=== PATIENT | male | born 1990 | race Caucasian/White ===

== ENCOUNTER 2024-09-03 15:50 | Observation (INO) | payer MEDICAID, SELFPAY ==
[2024-09-03] VITALS (13 sets, daily range): BP systolic 125–156; BP diastolic 81–112; PULSE 77–103; RESP 14–20; TEMP 36.5–37.3; O2SAT 96–99; BMI 41.8; BMI 39.9
--- NOTE | 2024-09-03 16:00 | CT_ITS ---
PROCEDURE: STROKE CTA HEAD AND NECK W/CON N/A REASON FOR EXAM: NEURO DEFICIT, ACUTE, STROKE SUSPECTED TECHNIQUE: CTA imaging of the head and neck from the aortic arch to the skull vertex with intravenous contrast. Coronal and Sagittal reconstruction series were provided. 3D, 3D post processing, 3D reconstructions, Maximum intensity projection (MIPs) Volume rendering and Shaded surface rendering was provided. CONTRAST: Omnipaque 350 VOLUME: 100 mL Not Provided Gauge IV One or more dose reduction techniques were used (e.g., Automated exposure control, adjustment of the mA and/or kV according to patient size, use of iterative reconstruction technique). COMPARISON: None FINDINGS: Aortic Arch: Normal size and branching pattern. No significant atherosclerotic plaque. Brachiocephalic and Subclavians: Unremarkable RIGHT Carotid: Right CCA: Unremarkable. Right ICA: Unremarkable. Maximum stenosis (NASCET): 0 % Right ECA: Unremarkable. LEFT Carotid: Left CCA: Unremarkable. Left ICA: Unremarkable. Maximum stenosis (NASCET): 0 % Left ECA: Unremarkable. Vertebrals: Codominant. Arise from the subclavians. Both vertebrals form the basilar. RIGHT Vertebral: Unremarkable. LEFT Vertebral: Unremarkable. Anatomy: [place] anatomy is normal. Aneurysm or avm: No intracranial aneurysms or large vascular malformations are identified. Anterior cerebral arteries: Unremarkable: Middle cerebral arteries: Unremarkable. Basilar artery: Unremarkable. Posterior cerebral arteries: Unremarkable. Other major branches of the posterior circulation: Unremarkable. Major venous structures: Unremarkable. Other findings: Neck: 2.0 x 3.1 cm superficial right lower neck soft tissue mass (series 2, image 138), likely represents a sebaceous cyst. Lungs: Lung apices are clear. Bones: Bones are unremarkable. CT/STROKE CTA Head AND Neck W/Con IMPRESSION: Patent anterior and posterior intracranial and extracranial circulation without hemodynamically significant stenosis, occlusion or aneurysm formation. Reading Location: [facility]
--- NOTE | 2024-09-03 16:01 | EKG12_ITS ---
Test Reason : NEURO Blood Pressure : */* mmHG Vent. Rate : 91 BPM Atrial Rate : 91 BPM P-R Int : 136 ms QRS Dur : 86 ms QT Int : 370 ms P-R-T Axes : 22 16 20 degrees QTcB Int : 455 ms Normal sinus rhythm Normal ECG Confirmed by Derrell Zambrano ([id number]), editorial intern CINDY MOSCOSO ([id number]) on 09/07/2024 6:42:42 AM Referred By: Adam Meza Confirmed By: Derrell Zambrano
--- NOTE | 2024-09-03 16:01 | CT_ITS ---
EXAM: CT Head Without Intravenous Contrast CLINICAL INDICATION: NEURO DEFICIT, ACUTE, STROKE SUSPECTED TECHNIQUE: Axial computed tomography images of the head/brain without intravenous contrast. This CT exam was performed using one or more of the following dose reduction techniques: automated exposure control, adjustment of the mA and/or kV according to patient size, and/or use of iterative reconstruction technique. COMPARISON: No relevant prior studies available. FINDINGS: BRAIN AND EXTRA-AXIAL SPACES: No acute intracranial hemorrhage, midline shift or mass effect. If symptoms persist, further evaluation with MRI is recommended. No significant white matter disease. BONES/JOINTS: Unremarkable. No acute fracture. SOFT TISSUES: Unremarkable. SINUSES: Unremarkable as visualized. No acute sinusitis. MASTOID AIR CELLS: Unremarkable as visualized. No mastoid effusion. CT/STROKE Brain/Head without Cont IMPRESSION: No acute intracranial hemorrhage, midline shift or mass effect. If symptoms per sist, further evaluation with MRI is recommended. Reading Location: [facility]
--- NOTE | 2024-09-03 16:04 | ED.VIS.STROK ---
HPI History of Present Illness Chief Complaint: Weakness Informant: patient and EMS Narrative Narrative: Brought by EMS progressive right upper extremity weakness and right lower leg weakness. Patient reported 9 AM yesterday 19 hours ago was already awake at home felt tingling in his hand progressed up to his forearm to his elbow. He felt some weakness in the arm. Some headache dizziness. No speech issues. States there is some weakness of the right lower extremity. He is a diabetic. He started on lisinopril 2 days ago by his PCP. No anticoagulants no stroke history. No history of similar. Denies any neck pain. Blood glucose 248 by EMS. Stroke team activated by nursing on arrival with symptoms within 24 hours. Patient reports symptoms progressed therefore he called EMS. Prior similar symptoms: No PFSH PFSH Medical History HTN (hypertension) Home Medications ?Medication ?Instructions ?Recorded ?Last Taken ?Type albuterol sulfate 90 mcg/actuation 1 puff inhalation Q4H PRN PRN 09/03/24 09/03/24 History aerosol inhaler wheezing bupropion HCl 150 mg 24 hr tablet, 150 mg PO DAILY 09/03/24 09/02/24 History extended release fluvoxamine 100 mg tablet 200 mg PO QHS 09/03/24 09/02/24 History lisinopril 10 mg tablet 10 mg PO DAILY 09/03/24 09/03/24 History metformin 1,000 mg tablet 1,000 mg PO BID 09/03/24 09/03/24 History sitagliptin phosphate 100 mg 100 mg PO DAILY 09/03/24 09/03/24 History tablet (Januvia) Allergy/AdvReac Type Severity Reaction Status Date / Time cat dander (cats) Allergy Mild Other Verified 09/03/24 17:13 Family History Other CVA (cerebral vascular accident) Cancer Diabetes Heart disease Social History Smoking Status: Never smoker ROS ROS ED Constitutional Constitutional ED: Denies chills, fever(s) or sweats ENT ENT ED: Denies sore throat Cardiovascular Cardiovascular: Denies chest pain, leg edema, palpitations or racing heartbeat Respiratory/Chest Respiratory/Chest: Denies cough, dyspnea or dyspnea on exertion Gastrointestinal Gastrointestinal: Denies abdominal pain, diarrhea, nausea or vomiting Genitourinary Genitourinary ED: Denies dysuria, hematuria or urinary frequency Musculoskeletal Musculoskeletal: Denies back pain, extremity pain or neck pain Integumentary Denies rash or wounds Neurologic Neurologic: Reports headache(s), paresthesias and weakness EXAM Physical Exam Const Vital Signs: 09/03/24 15:56 09/03/24 16:01 09/03/24 16:01 Temperature 99.2 F H Temperature Source Oral Pulse Rate 103 H 94 Respiratory Rate 16 16 Respiratory Effort Respiratory Pattern Blood Pressure 156/112 H 154/104 H Blood Pressure Mean 126 120 Pulse Ox 97 96 Oxygen Delivery Method Room Air Room Air Room Air 09/03/24 16:06 09/03/24 16:20 09/03/24 16:31 Temperature 99.2 F H Temperature Source Oral Pulse Rate 103 H 91 Respiratory Rate 16 19 H Respiratory Effort Normal Respiratory Pattern Normal Blood Pressure 156/112 H 141/96 H Blood Pressure Mean 126 111 Pulse Ox 97 96 Oxygen Delivery Method Room Air 09/03/24 17:00 09/03/24 17:01 09/03/24 17:30 Temperature Temperature Source Pulse Rate 85 85 89 Respiratory Rate 18 18 16 Respiratory Effort Respiratory Pattern Blood Pressure 137/95 H 134/98 H 125/81 H Blood Pressure Mean 109 110 95 Pulse Ox 97 97 98 Oxygen Delivery Method Room Air Room Air Positive well nourished and well developed General Appearance ED: well developed and NAD HEENT Reports moist mucous membranes normocephalic and atraumatic Eyes General Eye ED: Yes normal appearance of both eyes Neck full ROM Chest Wall Chest: Negative for tenderness Resp normal respiratory effort and normal air movement Effort and Inspection: symmetric chest movement; Negative for respiratory distress Cardio regular rate, regular rhythm and no murmurs Peripheral Pulses: pulses 2+ throughout GI normal to inspection, nondistended, normoactive bowel sounds and non-tender Palpation: Negative for guarding or rebound tenderness present Extremity normal to inspection General Extremety ED: Negative for edema or tenderness General Extremity: Negative for edema Neuro oriented x3, CN's II-XII intact bilaterally and no sensory deficits noted Neuro Narrative: Upper and lower cerebellar symmetric intact. NIH of 1 for paresthesia right upper extremity compared to the left. 4 out of 5 weakness to right director of direct marketing strength and elbow extension right side compared to the left side. 4 out of 5 strength right hip flexor, 3 out of 5 to right plantarflexion. Sensorium / Orientation: awake and alert Skin no rashes or lesions noted and no wounds NIHSS NIHSS Initial: 1a Level of Consciousness: 0 1b LOC Questions (Score 2 if aphasic/stupor): 0 1c LOC Commands (Only score 1st attempt): 0 2 Best Gaze (If aphasic, use reflexive mvmts.): 0 3 Visual: 0 4 Facial Palsy: 0 5 Motor Arm Right (UN = amputation/fusion): 0 5 Motor Arm Left: 0 6 Motor Leg Right: 0 6 Motor Leg Left: 0 7 Limb ataxia (Only + if out of proportion): 0 8 Sensory (Aphasia/stupor=0 or 1, coma=2): 1 9 Best Language: 0 10 Dysarthria (mute, coma=2, intubated=UN): 0 11 Extinction and Inattention (only scored if +): 0 Total Score: 1 MDM MDM MDM Narrative Medical decision making narrative: Interventions / MDM: Differential diagnosis: Right sided weakness, right upper extremity paresthesia, CVA, conversion disorder, history of diabetes Diagnosis considered but do not suspect: Intracranial hemorrhage however CT negative. My EKG interpretation: Sinus rhythm 91, no ST changes, T wave version leads III nonspecific. QTc 455. Imaging independently reviewed and interpreted by myself: CT brain: No acute process also read by radiology. CT angiogram: No LVO. External documents reviewed: N/A Test considered but not ordered:N/A ED course: Stroke team was activated before my evaluation. Patient NIH of 1 for paresthesias. Does have weakness right upper and lower extremity compared to the left side. CT head CT angiogram. Patient not in the time window for any TNK. Patient is being taken for CT. However while patient over at CT, noted time was 9 AM yesterday therefore this is over 24 hours. With his age, angiogram will be obtained. 1628: CT brain negative. 1731: CT angiogram negative. Labs stable. Reevaluation he states there is improvement however still slightly there and I still 1 for this. There is still some slight weakness director of direct marketing strength and elbow extension along with hip flexor and plantarflexion however noted to be improved from initial evaluation. Discussion with mom in the room he does have stress at work he states he works in a [employer] however states no more than normal. Mother reports family is to from stroke however is in their 50s. I discussed with patient with stress, conversion disorder is in the differential. He is a diabetic however therefore he does have risks. Due to still have weakness and new symptoms will discuss with hospitalist for admission for MRI. Discussed with hospitalist For admission. Derrick Re-evaluation: stable Disposition discussed with patient/family/significant other: Patient and mother Case discussed with consulting clinician: N/A This note was generated with Lootsie dictation software. It may contain incorrect words, spelling, and punctuation that were not noted in checking the note before signing. Lab Data Attestation: I reviewed the patient's lab results. Labs: Laboratory Results - last 24 hr 09/03/24 09/03/24 16:00 16:41 WBC 5.9 RBC 5.66 Hgb 15.7 Hct 47.3 MCV 83.6 MCH 27.7 MCHC 33.2 RDW Std Deviation 41.3 RDW Coeff of Trell 13.6 Plt Count 381 MPV 9.0 Immature Gran % (Auto) 0.300 Neut % (Auto) 58.7 Lymph % (Auto) 30.7 [place] % (Auto) 7.3 Eos % (Auto) 2.0 Baso % (Auto) 1.0 Absolute Neuts (auto) 3.5 Absolute Lymphs (auto) 1.81 Nucleated RBC % 0 PT 12.7 INR 0.9 APTT 26.2 Sodium 136 Potassium 4.3 Chloride 102 Carbon Dioxide 20.1 L Anion Gap 14 BUN 15 Creatinine 0.74 Estim Creat Clear Calc 207.89 Est GFR (MDRD) Non-Af 123 BUN/Creatinine Ratio 20.5 H Glucose 226 H Calcium 9.3 Troponin T High Sens < 6 Radiography Diagnostic Testing: Clinical Impression(s) from Imaging Studies Head/Neck CTA 09/03/24 16:00 IMPRESSION: Patent anterior and posterior intracranial and extracranial circulation without hemodynamically significant stenosis, occlusion or aneurysm formation. Reading [facility] 09/03/24 16:01 IMPRESSION: No acute intracranial hemorrhage, midline shift or mass effect. If symptoms persist, further evaluation with MRI is recommended. Reading Location: [facility] Stroke Documentation Questions Stroke Team Activated: Yes Reviewed Inclusion/Exclusion criteria: No Was Patient considered for Endovascular Intervention?: No-CTA negative, determined not to be an endovascular candidate IV Thrombolytic Administered: No (Outside the window) Critical Care Time Critical Care Time: Yes Critical care time (excluding procedures): 30-74 minutes, Discussing w/Patient &/or Family/Senior Rd Engineer, Discussing w/Consultants, Arranging Admission or Transfer, Performing Direct Patient Care at Bedside and - (31 minutes) Discharge Plan Dx/Rx/DC Orders Clinical Impression: Right sided weakness, Paresthesia, History of diabetes mellitus Disposition Disposition: Acute Care Hospital [facility] Discharge Date/Time: 09/03/24 18:45
[2024-09-03 16:12] LABS: Absolute Lymphocyte Count 1.81 X10^3/uL (0.83-4.51); Absolute Neutrophil Count 3.5 X10^3/uL (2.0-7.7); Basophil# 0.06 X10^3/uL; Eosinophil# 0.12 X10^3/uL; Hematocrit 47.3 % (40-54); Hemoglobin 15.7 g/dL (13.0-16.5); Lymphocyte # 1.81 X10^3/ul (0.83-4.51); Lymphocyte % 30.7 % (19-41); Mean Corp Hgb Conc 33.2 g/dL (32-36); Mean Corpuscular Hgb 27.7 pg (27.0-32.0); Mean Corpuscular Volume 83.6 fL (80-94); Monocyte# 0.43 X10^3/uL; Monocyte% 7.3 % (0-10); NRBC Flagged by Analyzer 0 % (0-5); Neutrophil # 3.45 X10^3/uL (2.7-7.7); Neutrophil % 58.7 % (47-70); Platelet Count 381 K/mm3 (150-450); RBC Distribution Width CV 13.6 % (11.6-14.6); RBC Distribution Width SD 41.3 fl (35.1-43.9); Red Blood Count 5.66 M/mm3 (4.6-6.2); White Blood Count 5.9 K/mm3 (4.4-11.0)
--- NOTE | 2024-09-03 16:15 | ED.RN ---
initally lkw was last evening thus stroke alert initated based on this information. after further assessment and information gathering, found sx started at [address] carpio and [facility]y aware and stroke alert cancelled. continue to follow through on neurology workup.
--- NOTE | 2024-09-03 16:21 | CHAPLAIN ---
Type of Pastoral Visit ___ Initial Visit ___ Follow-up Visit ___ On-call Visit ___ General Patient Visit ___ Spiritual Assessment ___ Family Conference ___ Bereavement ___ Rapid Response ___ Code Blue ___ Other (describe below) Pastoral Care Referral From ___ Patient ___ Family ___ Nurse ___ Physician ___ Beehive Kiln Charcoal Burner ___ Team Otr Truck Driver ___ Other (describe below) Sacrament/Intervention ___ Active listening ___ Anointing ___ Adventism ___ Bereavement ___ Communion ___ Alejandrina exploration ___ ___ Life review ___ Prayer ___ Reconciliation ___ Sacrament of Sick ___ Supportive presence ___ Wedding ___ Other (describe below) Pastoral Comments responded to stroke alert in the ED; patient had just been taken to CT; when pt returned introduced self and role to the patient and offered support and presence; pt reponsed that he was okay and that no family or friends would be arriving; pt denied needs at this time
[2024-09-03 16:48] LABS: Anion Gap 14 (5-15); BUN 15 mg/dL (4-19); BUN/Creat Ratio 20.5 RATIO (10-20); Calcium,Total 9.3 mg/dL (7.6-11.0); Carbon Dioxide 20.1 mmol/L (21.0-32.0); Chloride 102 mmol/L (98-108); Creatinine, Serum 0.74 mg/dL (0.70-1.20); EST Glomerular Filtration Rate 123 (>60); Estimated Creatinine Clearance 207.89 ml/min (50-250); Glucose 226 mg/dL (70-99); Potassium 4.3 mmol/L (3.3-5.1); Sodium Level 136 mmol/L (133-145); Troponin T High Sensitivity < 6 ng/L (<=22)
[2024-09-03 17:10] LABS: International Normalized Ratio 0.9; Partial Thromboplast Time 26.2 Seconds (24.1-36.2); Prothrombin Time (Protime)PT. 12.7 SECONDS (11.7-14.9)
--- NOTE | 2024-09-03 18:15 | PCM.HP.STD ---
HPI - General General Date of Admission: 09/03/24 HPI Narrative WAYLON CHRISTY, is a 34 M who presents to the hospital complaining of right arm and right leg weakness with numbness and tingling in his hand. He says that it started around yesterday at 9 AM and it has been getting worse. No recent traumas and denies any change in his diet. No back pain or neck pain. He may have endorsed some headaches around that time but no history of migraines. He does have type 2 diabetes that he is on metformin and Januvia for and he was recently started on lisinopril by his PCP. NIH of 1 for numbness and tingling in his right hand [facility] Medical History HTN (hypertension) Home Medications ?Medication ?Instructions ?Recorded ?Last Taken ?Type albuterol sulfate 90 mcg/actuation 1 puff inhalation Q4H PRN PRN 09/03/24 09/03/24 History aerosol inhaler wheezing bupropion HCl 150 mg 24 hr tablet, 150 mg PO DAILY 09/03/24 09/02/24 History extended release fluvoxamine 100 mg tablet 200 mg PO QHS 09/03/24 09/02/24 History lisinopril 10 mg tablet 10 mg PO DAILY 09/03/24 09/03/24 History metformin 1,000 mg tablet 1,000 mg PO BID 09/03/24 09/03/24 History sitagliptin phosphate 100 mg 100 mg PO DAILY 09/03/24 09/03/24 History tablet (Januvia) Allergy/AdvReac Type Severity Reaction Status Date / Time cat dander (cats) Allergy Mild Other Verified 09/03/24 17:13 Family History Other CVA (cerebral vascular accident) Cancer Diabetes Heart disease Surgical History no surgical history no surgical history Social History Smoking Status: Never smoker ROS Constitutional Constitutional: Denies chills, fatigue, fever(s) or malaise Eyes Eyes: Denies blurry vision ENT HEENT: Denies headache(s) or nasal discharge Cardiovascular Cardiovascular: Denies chest pain, dyspnea on exertion or syncope Respiratory/Chest Respiratory/Chest: Denies cough, shortness of breath at rest or shortness of breath with exertion Gastrointestinal Gastrointestinal: Denies constipation, diarrhea, nausea or vomiting Genitourinary Genitourinary: Denies dysuria Neurologic Neurologic: Reports focal weakness and paresthesias RUE; Denies numbness or tremor(s) Psychiatric Psychiatric: Denies anxiety or depression Vital Signs Vital Signs Vital Signs: 09/03/24 15:56 09/03/24 16:01 09/03/24 16:01 Temperature 99.2 F H Temperature Source Oral Pulse Rate 103 H 94 Respiratory Rate 16 16 Respiratory Effort Respiratory Pattern Blood Pressure 156/112 H 154/104 H Blood Pressure Mean 126 120 Pulse Ox 97 96 Oxygen Delivery Method Room Air Room Air Room Air 09/03/24 16:06 09/03/24 16:20 09/03/24 16:31 Temperature 99.2 F H Temperature Source Oral Pulse Rate 103 H 91 Respiratory Rate 16 19 H Respiratory Effort Normal Respiratory Pattern Normal Blood Pressure 156/112 H 141/96 H Blood Pressure Mean 126 111 Pulse Ox 97 96 Oxygen Delivery Method Room Air 09/03/24 17:00 09/03/24 17:01 09/03/24 17:30 Temperature Temperature Source Pulse Rate 85 85 89 Respiratory Rate 18 18 16 Respiratory Effort Respiratory Pattern Blood Pressure 137/95 H 134/98 H 125/81 H Blood Pressure Mean 109 110 95 Pulse Ox 97 97 98 Oxygen Delivery Method Room Air Room Air 09/03/24 18:00 Temperature Temperature Source Pulse Rate 77 Respiratory Rate 14 Respiratory Effort Respiratory Pattern Blood Pressure 132/82 H Blood Pressure Mean 98 Pulse Ox 96 Oxygen Delivery Method Weight Weight: 308 lb 10.354 oz Body Mass Index (BMI) 41.8 Physical Exam Narrative General: Alert, Oriented x3, Cooperative, No apparent distress HEENT: Atraumatic, PERRLA, EOMI, Normocephalic Oral: Moist Mucosa Neck: Supple, No JVD, right lower neck sebaceous cyst Lungs: Clear to auscultation, Normal air movement, No rhonchi, No wheeze, No rales Cardiovascular: Regular rate, Regular Rhythm, Normal S1, Normal S2, No murmurs Abdomen: Soft, Non Tender, Non-Distended, No Hepato-splenomegaly Extremities: No edema, Capillary Refill Less than 3 Seconds Skin: No rashes, No breakdown Musculoskeletal: No Tenderness to Palpation of Joints or Extremities Neurological: Diminished sensation in his right hand, NIH of 1, strength is 4 out of 5 on his right upper extremity and right lower extremity Psych/Mental Status: Normal Affect, Appropriate Results Lab / Micro Data 09/03/24 16:00 09/03/24 16:00 Labs: Laboratory Results - last 24 hr 09/03/24 16:00: WBC 5.9, RBC 5.66, Hgb 15.7, Hct 47.3, MCV 83.6, MCH 27.7, MCHC 33.2, RDW Std Deviation 41.3, RDW Coeff of Trell 13.6, Plt Count 381, MPV 9.0, Immature Gran % (Auto) 0.300, Neut % (Auto) 58.7, Lymph % (Auto) 30.7, [place] % (Auto) 7.3, Eos % (Auto) 2.0, Baso % (Auto) 1.0, Absolute Neuts (auto) 3.5, Absolute Lymphs (auto) 1.81, Nucleated RBC % 0, Sodium 136, Potassium 4.3, Chloride 102, Carbon Dioxide 20.1 L, Anion Gap 14, BUN 15, Creatinine 0.74, Estim Creat Clear Calc 207.89, Est GFR (MDRD) Non-Af 123, BUN/Creatinine Ratio 20.5 H, Glucose 226 H, Calcium 9.3, Troponin T High Sens < 6 09/03/24 16:41: PT 12.7, INR 0.9, APTT 26.2 Imaging Radiology Impression Head/Neck CTA 09/03/24 16:00 IMPRESSION: Patent anterior and posterior intracranial and extracranial circulation without hemodynamically significant stenosis, occlusion or aneurysm formation. Reading [facility] 09/03/24 16:01 IMPRESSION: No acute intracranial hemorrhage, midline shift or mass effect. If symptoms persist, further evaluation with MRI is recommended. Reading [facility] Assessment & Plan Assessment/Plan (1) Right sided weakness: (2) Paresthesia: PLAN: Plan 1. TIA ? A little atypical given his age however he is morbidly obese with a BMI of 41 ? Will obtain an MRI and an echo in the morning ? Will place him on aspirin and Lipitor ? CTA of the head and neck as well as CT of the brain were unremarkable 2. DM2 ? Will hold his metformin and Januvia ? Sliding scale insulin ? Accu-Cheks ACHS ? Will monitor make adjustments as necessary ? Will hold his lisinopril to allow for permissive hypertension DVT: SCDs 75 minutes was spent on direct patient care, including documentation as well as chart review and collaboration with colleagues Charges/Coding Visit Charges Inpatient E&M: 64838 Init Hosp L3
[2024-09-03 18:54] LABS: Troponin T High Sens 2 HR 6 ng/L (<=22)
--- NOTE | 2024-09-03 19:33 | ECHOD_ITS ---
Reason For Study Reason For Study: TIA/CVA Procedure This was a 2D Doppler, Color Flow transthoracic echocardiogram. Exam performed portable in patient room. Left Ventricle Normal left ventricle. The estimated ejection fraction is 55-60 %. Right Ventricle Normal right ventricle. Atria Normal left atrium. Normal right atrium. Bubble contrast study is negative for PFO/ASD. Mitral Valve The mitral valve is structurally normal. No prolapse or stenosis seen. Trivial mitral valve insufficiency. Tricuspid Valve Normal tricuspid valve. Aortic Valve Trisinus/trileaflet aortic valve. Pulmonic Valve The pulmonic valve is not well visualized. Great Vessels The aortic root is not well visualized. Pericardium/Pleural No pericardial effusion. Medication Performed a rapid injection of agitated mix of 9 cc saline and 1cc air to assess for atrial septal defect. MMode/2D Measurements & Calculations LVIDd: 4.8 cm IVSd: 1.2 cm Ao root diam: 3.1 cm LVIDs: 3.2 cm LVPWd: 1.2 cm RVDd: 3.4 cm FS: 32.8 % LAV(MOD-bp): 40.0 ml LVAd ap4: 29.2 cm2 SV(MOD-sp4): 54.7 ml LAV(MOD-bp) Indexed: 15.6 ml/m2 LVLd ap4: 8.1 cm SI(MOD-sp4): 21.4 ml/m2 LAV(MOD-sp2): 33.7 ml EDV(MOD-sp4): 87.0 ml LAV(MOD-sp4): 39.9 ml EDV(sp4-el): 90.0 ml LVAs ap4: 16.1 cm2 LVLs ap4: 6.6 cm ESV(MOD-sp4): 32.3 ml ESV(sp4-el): 33.4 ml EF(MOD-sp4): 62.8 % EF(sp4-el): 62.9 % SV(sp4-el): 56.6 ml LA A4 area: 17.4 cm2 LA dimension(2D): 3.6 cm RA A4 area: 14.1 cm2 TAPSE: 2.3 cm Time Measurements MV dec time: 0.23 sec Doppler Measurements & Calculations MV E max chris: 103.2 cm/sec Lat Peak E' Chris: 17.1 cm/sec Med Peak E' Chris: 14.4 cm/sec MV A max chris: 66.5 cm/sec E/E' lat: 6.0 E/E' med: 7.2 MV E/A: 1.6 Ao V2 max: 151.9 cm/sec LV V1 max: 129.3 cm/sec PA V2 max: 123.2 cm/sec Ao max P.2 mmHg LV V1 max P.7 mmHg TR max chris: 263.4 cm/sec TR max P.8 mmHg ECHO/Echo Complete Interpretation Summary The estimated ejection fraction is 55-60 %. Normal LV systolic function Negative bubble study No previous echocardiogram to compare. Ordering Physician: Adam Meza Referring Physician: AMMY BARROW Performed By: Shereen Winkler RDCS
[2024-09-03 21:22] LABS: Troponin T High Sens 4 HR 6 ng/L (<=22)
[2024-09-03] MEDS: Insulin Lispro 100 UNIT/ML INSULN.PEN SC (23:50)
[2024-09-03] MEDS: buPROPion (XL) 150 MG TABLET.XL PO (23:50)
[2024-09-03] MEDS: Atorvastatin Calcium 80 MG Tablet PO (23:50)
[2024-09-03] MEDS: fluvoxaMINE Maleate 50 MG Tablet 200 MG PO (23:50)
[2024-09-04 00:01] LABS: Bedside Glucose 230 mg/dL (74-106)
[2024-09-04 03:45] VITALS: BP 127/83; PULSE 75; RESP 16; TEMP 36.6; O2SAT 98
[2024-09-04] MEDS: Insulin Lispro 100 UNIT/ML INSULN.PEN SC ×2 (06:41→12:06)
[2024-09-04 07:15] LABS: Bedside Glucose 185 mg/dL (74-106)
[2024-09-04 07:34] LABS: Absolute Lymphocyte Count 1.61 X10^3/uL (0.83-4.51); Absolute Neutrophil Count 2.3 X10^3/uL (2.0-7.7); Basophil# 0.07 X10^3/uL; Basophil% 1.5 % (0-1); Eosinophil# 0.14 X10^3/uL; Eosinophils% 3.1 % (0-5); Hemoglobin 14.4 g/dL (13.0-16.5); Lymphocyte # 1.61 X10^3/ul (0.83-4.51); Lymphocyte % 35.6 % (19-41); Mean Corp Hgb Conc 32.7 g/dL (32-36); Mean Corpuscular Hgb 27.3 pg (27.0-32.0); Mean Corpuscular Volume 83.5 fL (80-94); Mean Platelet Vol. 9.1 fl (6.2-12.0); Monocyte# 0.37 X10^3/uL; Monocyte% 8.2 % (0-10); NRBC Flagged by Analyzer 0 % (0-5); Neutrophil % 50.9 % (47-70); Platelet Count 329 K/mm3 (150-450); RBC Distribution Width CV 13.6 % (11.6-14.6); RBC Distribution Width SD 41.2 fl (35.1-43.9); Red Blood Count 5.27 M/mm3 (4.6-6.2); White Blood Count 4.5 K/mm3 (4.4-11.0)
[2024-09-04 07:36] VITALS: O2SAT 97
[2024-09-04 07:45] VITALS: BP 150/102; PULSE 70; RESP 16; TEMP 36.6; O2SAT 97
[2024-09-04 08:09] LABS: Anion Gap 10 (5-15); BUN 14 mg/dL (4-19); BUN/Creat Ratio 23.7 RATIO (10-20); Calcium,Total 9.1 mg/dL (7.6-11.0); Carbon Dioxide 23.9 mmol/L (21.0-32.0); Chloride 104 mmol/L (98-108); Cholesterol 215 mg/dL (<=200); Creatinine, Serum 0.59 mg/dL (0.70-1.20); EST Glomerular Filtration Rate 132 (>60); Estimated Creatinine Clearance 261.61 ml/min (50-250); Glucose 204 mg/dL (70-99); High Density Lipoprotein 44 mg/dL; Low Density Lipoprotein Calc. 143 mg/dL; Potassium 4.5 mmol/L (3.3-5.1); Sodium Level 138 mmol/L (133-145); Triglycerides 145 mg/dL; Very Low Density Lipoprotein 29 mg/dL (5-40); cholesterol:hdl ratio screen 4.94
[2024-09-04 08:27] LABS: Hemoglobin A1c 11.2 % (<=5.6)
[2024-09-04] MEDS: Aspirin 81 MG TAB.CHEW PO (08:42)
[2024-09-04] MEDS: buPROPion (XL) 150 MG TABLET.XL PO (08:42)
--- NOTE | 2024-09-04 09:00 | MRI_ITS ---
PROCEDURE: BRAIN WITHOUT CONTRAST 09/04/2024 REASON FOR EXAM: CVA/TIA TECHNIQUE: Brain MRI without intravenous contrast with additional dedicated imaging of the IACs. COMPARISON: 09/03/2024 FINDINGS: No diffusion restriction to suggest acute/subacute ischemia. No evidence of acute intracranial hemorrhage, midline shift or mass effect. No chronic microhemorrhage. Cerebral volume is maintained. No hydrocephalus. No suspicious parenchymal signal abnormalities. Globes are intact. Paranasal sinuses and mastoid air cells are clear. MRI/Brain without Contrast IMPRESSION: No acute intracranial abnormality. Reading Location: [facility]
[2024-09-04 11:45] VITALS: BP 144/99; PULSE 82; RESP 16; TEMP 36.6; O2SAT 98
[2024-09-04 13:56] LABS: Bedside Glucose 248 mg/dL (74-106)
[2024-09-04 15:45] VITALS: BP 150/107; PULSE 83; RESP 16; TEMP 36.8; O2SAT 95
--- NOTE | 2024-09-04 16:00 | NEURO.CONS ---
Assessment and Plan: Neuro Assessment/Plan WAYLON CHRISTY is a 34 M with a past medical history of poorly controlled diabetes, being evaluated by Teleneurology for R arm and leg numbness. Based on history consistent more with neuropathy. On exam, consistent with more of a peripheral neuropathy. Weakness is not severe and may be sensory limited. Discussed with patient to control blood glucose better as has had worsening glucose control prior to this and this may be contributing to his neuropathy. If symptoms do not improve, recommend followup with neurology outpatient and EMG in 4-6 weeks for additional neuropathy workup. I personally attended this patient and spent a total time of 45minutes evaluating this patient including clinical assessment, review of chart, medical history imaging, and determining appropriate treatment and workup. HPI Consult Data Date of Consult: 09/04/24 HPI Narrative HPI Narrative: WAYLON CHRISTY, is a 34 M who presents to the hospital complaining of right arm and right leg weakness with numbness and tingling in his hand. He says that it started around yesterday at 9 AM and it has been getting worse. No recent traumas and denies any change in his diet. No back pain or neck pain. He may have endorsed some headaches around that time but no history of migraines. He does have type 2 diabetes that he is on metformin and Januvia for and he was recently started on lisinopril by his PCP. NIH of 1 for numbness and tingling in his right hand Neurologic History Had just woken up from sleep. The weakness is improved and faded, the tingling in the hand. No symptoms in the leg. Symptoms would lasted 2-3 hrs. Then would have progressive worsening at work. Does not normally have SHRESTHA. This SHRESTHA started 07/06 and he has had it for a couple days now Lisinopril started in the last month Blood sugars have been higher for the last several months because he lost his insurance a whle ago and stopped taking his meds. Now when he takes his meds, his blood sugars are still not well controlled. [facility] Medical History HTN (hypertension) Home Medications ?Medication ?Instructions ?Recorded ?Last Taken ?Type albuterol sulfate 90 mcg/actuation 1 puff inhalation Q4H PRN PRN 09/03/24 09/03/24 History aerosol inhaler wheezing bupropion HCl 150 mg 24 hr tablet, 150 mg PO DAILY 09/03/24 09/02/24 History extended release fluvoxamine 100 mg tablet 200 mg PO QHS 09/03/24 09/02/24 History lisinopril 10 mg tablet 10 mg PO DAILY 09/03/24 09/03/24 History metformin 1,000 mg tablet 1,000 mg PO BID 09/03/24 09/03/24 History sitagliptin phosphate 100 mg 100 mg PO DAILY 09/03/24 09/03/24 History tablet (Januvia) Allergy/AdvReac Type Severity Reaction Status Date / Time cat dander (cats) Allergy Mild Other Verified 09/03/24 17:13 Family History Other CVA (cerebral vascular accident) Cancer Diabetes Heart disease Surgical History no surgical history Social History Smoking Status: Never smoker Vital Signs Vital Signs Vital Signs: 09/03/24 16:01 09/03/24 16:01 09/03/24 16:06 Temperature 99.2 F H Temperature Source Oral Pulse Rate 94 103 H Pulse Strength Respiratory Rate 16 16 Respiratory Effort Respiratory Depth Respiratory Pattern Blood Pressure 154/104 H 156/112 H Blood Pressure Mean 120 126 Blood Pressure Source Blood Pressure Position Blood Pressure Location Pulse Ox 96 97 Oxygen Delivery Method Room Air Room Air 09/03/24 16:20 09/03/24 16:31 09/03/24 17:00 Temperature Temperature Source Pulse Rate 91 85 Pulse Strength Respiratory Rate 19 H 18 Respiratory Effort Normal Respiratory Depth Respiratory Pattern Normal Blood Pressure 141/96 H 137/95 H Blood Pressure Mean 111 109 Blood Pressure Source Blood Pressure Position Blood Pressure Location Pulse Ox 96 97 Oxygen Delivery Method Room Air Room Air 09/03/24 17:01 09/03/24 17:30 09/03/24 18:00 Temperature Temperature Source Pulse Rate 85 89 77 Pulse Strength Respiratory Rate 18 16 14 Respiratory Effort Respiratory Depth Respiratory Pattern Blood Pressure 134/98 H 125/81 H 132/82 H Blood Pressure Mean 110 95 98 Blood Pressure Source Blood Pressure Position Blood Pressure Location Pulse Ox 97 98 96 Oxygen Delivery Method Room Air 09/03/24 18:30 09/03/24 18:44 09/03/24 19:45 Temperature 98.7 F 97.7 F L Temperature Source Oral Pulse Rate 83 88 84 Pulse Strength Respiratory Rate 16 20 H 14 Respiratory Effort Respiratory Depth Respiratory Pattern Blood Pressure 131/82 H 131/82 H 130/95 H Blood Pressure Mean 98 98 106 Blood Pressure Source Monitor Blood Pressure Position Semi-Fowlers Blood Pressure Location Right Forearm Pulse Ox 97 99 97 Oxygen Delivery Method Room Air Room Air 09/03/24 19:45 09/03/24 20:36 09/03/24 20:42 Temperature 97.7 F L Temperature Source Oral Pulse Rate 84 Pulse Strength Normal (2+) Respiratory Rate 14 Respiratory Effort Normal Non-Labored Respiratory Depth Normal Respiratory Pattern Normal Blood Pressure 130/95 H Blood Pressure Mean 106 Blood Pressure Source Monitor Blood Pressure Position Semi-Fowlers Blood Pressure Location Right Forearm Pulse Ox 97 Oxygen Delivery Method Room Air Room Air 09/03/24 21:00 09/03/24 23:40 09/03/24 23:40 Temperature 98.0 F 98.0 F Temperature Source Oral Oral Pulse Rate 81 81 Pulse Strength Respiratory Rate 16 16 Respiratory Effort Respiratory Depth Respiratory Pattern Blood Pressure 132/90 H 132/90 H Blood Pressure Mean 104 104 Blood Pressure Source Monitor Monitor Blood Pressure Position Semi-Fowlers Semi-Fowlers Blood Pressure Location Right Arm Right Arm Pulse Ox 97 97 97 Oxygen Delivery Method Room Air Room Air Room Air 09/04/24 03:45 09/04/24 03:45 09/04/24 07:36 Temperature 97.8 F 97.8 F Temperature Source Temporal Temporal Pulse Rate 75 75 Pulse Strength Respiratory Rate 16 16 Respiratory Effort Respiratory Depth Respiratory Pattern Blood Pressure 127/83 H 127/83 H Blood Pressure Mean 97 97 Blood Pressure Source Monitor Monitor Blood Pressure Position Semi-Fowlers Semi-Fowlers Blood Pressure Location Right Arm Right Arm Pulse Ox 98 98 97 Oxygen Delivery Method Room Air Room Air Room Air 09/04/24 07:45 09/04/24 07:45 09/04/24 11:45 Temperature 97.8 F 98 F Temperature Source Oral Oral Pulse Rate 70 82 Pulse Strength Respiratory Rate 16 16 Respiratory Effort Normal Non-Labored Respiratory Depth Respiratory Pattern Blood Pressure 150/102 H 144/99 H Blood Pressure Mean 118 114 Blood Pressure Source Monitor Monitor Blood Pressure Position Semi-Fowlers Sitting Blood Pressure Location Right Arm Right Arm Pulse Ox 97 98 Oxygen Delivery Method Room Air Room Air Weight Weight: 137.4 kg Body Mass Index (BMI) 39.9 EEG Results Procedure Details EEG Procedure Details: WAYLON CHRISTY is a 34 year old M with a past medical history of , who presents for evaluation of Electroencephalogram on DATE at TIME NIHSS NIHSS Nursing Documentation NIHSS Nursing Documentation: NIHSS: Ischemic Stroke/TIA Start: 09/03/24 19:33 Text: For PCU Patients: NIH and Neuro Check every 4 Status: Active hours, PRN and with change in RN caregiver. Freq: [id number] Protocol: Activity Type Activity Date Activity User E-sign Co-sign Detail Recorded Client Recorded Date Recorded By Document 09/04/24 11:45 desktop 09/04/24 12:05 09/04/24 11:45 NIH Stroke Scale [NIHSS] A score of 0 is normal or asymptomatic . Total possible score is 42. Inpatient: RN or Physician to activate a stroke alert for onset of new stroke symptoms or with NIHSS increase >/= 3 points. Following change in neurological status, NIHSS will be performed per physician order or more frequently PRN. -1a. Level of Consciousness Alert; keenly responsive -1b. LOC Questions Answers BOTH questions correctly. -1c. LOC Commands Performs both tasks correctly . -2. Best Gaze Normal -3. Visual No visual loss -4. Facial Palsy Normal symmetrical movements -5a. Left Arm No drift; arm holds 90 (or 45 ) degrees for full 10 seconds -5b. Right Arm No drift; arm holds 90 (or 45 ) degrees for full 10 seconds -6a. Left Leg No drift; leg holds 30-degree position for full 5 seconds -6b. Right Leg No drift; leg holds 30-degree position for full 5 seconds -7. Limb Ataxia Absent -8. Sensory Mild-to- moderate sensory loss; -9. Best Language No aphasia; normal -10. Dysarthria Normal -11. Extinction and Inattention No abnormality -Total 1 Query Text:A score of 0 is normal or asymptomatic. Total possible score is 42 . ED: Notify Physician for NIHSS increase by > / = 3 points. Inpatient: RN or Physician to activate a stroke alert for NIHSS increase of > / = 3 points. Coma Scale [Assess] -Eye Opening Spontaneous -Motor Obeys Commands -Verbal Oriented [Total] -Coma Scale Total 15 Physical Exam Narrative -? NEURO: -? Mental Status: The patient was alert and oriented to time, place, and person. Normal recent/remote memory, concentration, and general fund of knowledge. -? Language: speech is clear.? Naming, repetition, fluency, and comprehension intact. -? Cranial Nerves: PERRL 4mm/brisk. EOMI, visual lecuhga full, no facial asymmetry, facial sensation intact, hearing intact, tongue midline, no evidence of atrophy or fibrillations. -? Motor: normal bulk, tone, and strength throughout. No pronator drift or satelliting. Upper and lower extremities equal bilaterally. -? Detailed strength exam as performed by the nurse/ELVA and witnessed by the physician: R L SA 5- 5 EE 5- 5 EF 4 5 WE WF Insulator Helper 5- 5 HF 4 5 KE KF 5 5 DF 5 5 PF DI 4 5 opponens 5 5 -? Tone: is normal and bulk is normal -? Sensation- diminished in a glove distribution of the R arm -? Coordination: No dysmetria on [id number], finger follow finger or [id number]-dopy. -? Gait- deferred Lab / Micro Data 09/04/24 06:28 09/04/24 06:28 Labs: Laboratory Results - last 24 hr 09/03/24 16:00: WBC 5.9, RBC 5.66, Hgb 15.7, Hct 47.3, MCV 83.6, MCH 27.7, MCHC 33.2, RDW Std Deviation 41.3, RDW Coeff of Trell 13.6, Plt Count 381, MPV 9.0, Immature Gran % (Auto) 0.300, Neut % (Auto) 58.7, Lymph % (Auto) 30.7, Beckham % (Auto) 7.3, Eos % (Auto) 2.0, Baso % (Auto) 1.0, Absolute Neuts (auto) 3.5, Absolute Lymphs (auto) 1.81, Nucleated RBC % 0, Sodium 136, Potassium 4.3, Chloride 102, Carbon Dioxide 20.1 L, Anion Gap 14, BUN 15, Creatinine 0.74, Estim Creat Clear Calc 207.89, Est GFR (MDRD) Non-Af 123, BUN/Creatinine Ratio 20.5 H, Glucose 226 H, Calcium 9.3, Troponin T High Sens < 6 09/03/24 16:41: PT 12.7, INR 0.9, APTT 26.2 09/03/24 18:00: Troponin T Hi Sens 2 Hr 6 09/03/24 20:45: Troponin T Hi Sens 4Hr 6 09/03/24 23:42: POC Glucose 230 H 09/04/24 06:28: WBC 4.5, RBC 5.27, Hgb 14.4, Hct 44.0, MCV 83.5, MCH 27.3, MCHC 32.7, RDW Std Deviation 41.2, RDW Coeff of Trell 13.6, Plt Count 329, MPV 9.1, Immature Gran % (Auto) 0.700, Neut % (Auto) 50.9, Lymph % (Auto) 35.6, Beckham % (Auto) 8.2, Eos % (Auto) 3.1, Baso % (Auto) 1.5 H, Absolute Neuts (auto) 2.3, Absolute Lymphs (auto) 1.61, Nucleated RBC % 0, Sodium 138, Potassium 4.5, Chloride 104, Carbon Dioxide 23.9, Anion Gap 10, BUN 14, Creatinine 0.59 L, Estim Creat Clear Calc 261.61 H, Est GFR (MDRD) Non-Af 132, BUN/Creatinine Ratio 23.7 H, Glucose 204 H, Hemoglobin A1c 11.2 H, Calcium 9.1, Triglycerides 145, Cholesterol 215 H, LDL Cholesterol, Calc 143, VLDL Cholesterol 29, HDL Cholesterol 44, Cholesterol/HDL Ratio 4.94 09/04/24 06:40: POC Glucose 185 H 09/04/24 12:03: POC Glucose 248 H Imaging Radiology Impression Head/Neck CTA 09/03/24 16:00 IMPRESSION: Patent anterior and posterior intracranial and extracranial circulation without hemodynamically significant stenosis, occlusion or aneurysm formation. Reading Location: [facility] Brain CT 09/03/24 16:01 IMPRESSION: No acute intracranial hemorrhage, midline shift or mass effect. If symptoms persist, further evaluation with MRI is recommended. Reading Location: [facility] Echocardiogram 09/03/24 19:33 Interpretation Summary The estimated ejection fraction is 55-60 %. Normal LV systolic function Negative bubble study No previous echocardiogram to compare. Ordering Physician: Adam Meza Referring Physician: AMMY BARROW Performed By: Shereen Winkler RDCS Brain MRI 09/04/24 09:00 IMPRESSION: No acute intracranial abnormality. [facility] Active Medications Active Medications Active Medications: Current Medications Generic Name Dose Route Start Last Admin Trade Name Freq PRN Reason Stop Dose Admin Aspirin 81 mg 09/04/24 08:00 09/04/24 08:42 Aspirin 81 Mg Tab.Chew PO 81 mg BREAKFAST MANAV Administration Atorvastatin Calcium 80 mg 09/03/24 22:00 09/03/24 23:50 Atorvastatin Calcium 80 Mg Tablet PO 80 mg QHS MANAV Administration Bupropion HCl 150 mg 09/03/24 22:12 09/04/24 08:42 Bupropion (Xl) 150 Mg Tablet.Xl PO 150 mg DAILY MANAV Administration Fluvoxamine Maleate 200 mg 09/04/24 22:00 09/03/24 23:50 Fluvoxamine Maleate 50 Mg Tablet PO 200 mg QHS MANAV Administration Glucagon 1 mg 09/03/24 19:33 Glucagon 1 Mg/Ml Syringe IM X1 PRN HYPOGLYCEMIA Protocol Hydralazine HCl 5 mg 09/03/24 19:33 Hydralazine 20 Mg/Ml Vial IV 09/04/24 19:33 Q30M PRN maintain BP parameters with HR <60 Dextrose 250 mls @ 0 mls/hr 09/03/24 19:33 Dextrose 10%-Water IV .Q0M PRN HYPOGLYCEMIA Protocol As Directed Sodium Chloride 100 mls @ 15 mls/hr 09/03/24 19:34 IV .Q6H40M PRN Saline Flush Sodium Chloride 100 mls @ 15 mls/hr 09/03/24 19:34 IV .Q6H40M PRN Additional IVPB Infusion Insulin Human Lispro 0 unit 09/03/24 22:00 09/04/24 12:06 Insulin Lispro 100 Unit/Ml Insuln.Pen SC 4 units ACHS MANAV Administration Protocol Labetalol HCl 20 mg 09/03/24 16:01 Labetalol 20mg/4ml Syringe IV 09/04/24 16:01 X1 PRN Blood Pressure Labetalol HCl 10 - 20 mg 09/03/24 19:33 Labetalol 20mg/4ml Syringe IV 09/04/24 19:33 Q10M PRN PRN maintain BP parameters with HR >/=60 Sodium Chloride 10 - 40 ml 09/03/24 19:34 0.9% Saline Lock 10 Ml Syringe IV UD PRN SALINE FLUSH
[2024-09-04 16:31] VITALS: BMI 39.9
--- NOTE | 2024-09-04 16:41 | PCM.DC ---
Discharge Instructions Diet Discharge Diet: 2000 Calorie Control Diet and Carb Control Diet DC O2, CPAP, BIPAP needs Home O2 Discharge instructions: No Dressing / Incision Discharge Activity: Return to Normal Activity Follow Up Care Test Results: Test results from this visit will be discussed in further detail at your follow-up appointment, if applicable. Discharge Plan Admission Admit Date/Time: 09/03/24 17:59 Primary Reason for Your Visit: Right arm weakness and tingling Attending Provider: Emely Villanueva Primary Care Provider: Danny Kraus Consulting Providers: Adam Meza; Amari Blake; Holly Christensen; Dottie Childers; Manisha Thompson; Noni Burton; Esteban Rivas; Selena Dickey; Vick Fagan; Maycol Torres; Chepe Rojas; Kassidy Brush; Se Waterman; Priscila Pruett; Angie Darby; Eric Mcdonald; Damian Monaco; Fran Shankar; Brian Hyde; Judith Arreaga; Adele Baires Instructions Patient Instructions: Blood Sugar Check Steps Additional Instructions / Restrictions: DISCHARGE INSTRUCTIONS PLEASE READ *Please take this with you to your next doctors appointment* -Please call to establish care with endocrinology upon discharge for monitoring and management of your blood sugars, contact information below - Please continue to monitor your glucose and resume your home diabetes medications, this may need to be changed over time, please follow closely on discharge - If your symptoms continue over the next 1 to 2 months you may need to follow-up with neurology on an outpatient basis for further evaluation -Please call your primary care provider's office upon discharge to schedule a hospital follow up within 1 week. -For any concerning signs or symptoms please call 911 or proceed to the nearest emergency department Discharge Orders/Prescriptions Prescriptions: Continued fluvoxamine 100 mg tablet 200 mg PO QHS metformin 1,000 mg tablet 1,000 mg PO BID lisinopril 10 mg tablet 10 mg PO DAILY albuterol sulfate 90 mcg/actuation HFA aerosol inhaler 1 puff INHALATION Q4H PRN PRN (Reason: wheezing) bupropion HCl 150 mg tablet extended release 24 hr 150 mg PO DAILY Januvia 100 mg tablet 100 mg PO DAILY Referrals / Follow Up: Danny Kraus MD [Primary Care Provider] - Within 2 Weeks Juan Fuchs MD [Med Staff - Courtesy Staff] - (Please call to establish care with endocrinology upon discharge for monitoring and management of your blood sugars) Care Physician,No Primary [Non-Staff] - Disposition Disposition (needs filled in before D/C Order can be placed): Home, Self Care
--- NOTE | 2024-09-04 16:47 | PCM.DC.SUM ---
Providers Date of Admission: 09/03/24 Date of Discharge: 09/04/24 Primary Care Physician: Dr. Ammy Barrow MD Consultations 09/04/24 11:49 Consult: Tele-Neurology Routine Consulting Provider: [facility] Reason for Consult: here w/ RUE parasthesias, R sided weakness, MRI neg unclear etiology EMERGENT Consult: No MD Notified: Yes Date Notified: 09/04/24 Time Notified: 12:18 Method of Notification: Answering Service Nursing Unit Staff Notify [facility] of Tele-Neurology Consult: Yes Reason For Visit: Right sided weakness and right hand tingling Diagnosis Discharge Diagnosis (1) Right sided weakness: Status: Acute Code(s): R53.1 - Weakness (2) Paresthesia: Status: Acute Code(s): R20.2 - Paresthesia of skin Plan # Right hand paresthesias, suspect peripheral neuropathy # Diabetes # Hypertension Medications at Discharge Home Medications albuterol sulfate 90 mcg/actuation aerosol inhaler 1 puff inhalation Q4H PRN PRN wheezing 09/03/24 bupropion HCl 150 mg 24 hr tablet, extended release 150 mg PO DAILY 09/03/24 fluvoxamine 100 mg tablet 200 mg PO QHS 09/03/24 lisinopril 10 mg tablet 10 mg PO DAILY 09/03/24 metformin 1,000 mg tablet 1,000 mg PO BID 09/03/24 sitagliptin phosphate 100 mg tablet (Januvia) 100 mg PO DAILY 09/03/24 Hospital Course Procedures - (MRI, TTE) Summary of Care Provided Minutes Spent on Discharge: 22 Hospital Course: Per HPI:WAYLON CHRISTY, is a 34 M who presents to the hospital complaining of right arm and right leg weakness with numbness and tingling in his hand. He says that it started around yesterday at 9 AM and it has been getting worse. No recent traumas and denies any change in his diet. No back pain or neck pain. He may have endorsed some headaches around that time but no history of migraines. He does have type 2 diabetes that he is on metformin and Januvia for and he was recently started on lisinopril by his PCP. NIH of 1 for numbness and tingling in his right hand INTERVAL HISTORY: Patient's echocardiogram and MRI negative for acute process, right hand paresthesias did persist so neurology was asked to evaluate, it was suspected that this may be in part neuropathy secondary to his diabetes and recommended patient follow with endocrinology for better control of his diabetes and if symptoms do not improve in 4 to 6 weeks to follow-up with neurology for further workup and possible EMG. Discussed with patient at bedside, do still have the hand paresthesias but has no other focal complaints and no complaints of weakness, no other new or acute complaints. Discussed patient's diabetes and reports that he only got back on his medication a month ago and glucose at home usually is around 200, he checks his glucose 4 times daily and is scheduled for blood work and repeat follow-up with PCP, he reports he is very motivated to get his glucose back under control. Discharge instructions as followed: -Please call to establish care with endocrinology upon discharge for monitoring and management of your blood sugars, contact information below - Please continue to monitor your glucose and resume your home diabetes medications, this may need to be changed over time, please follow closely on discharge - If your symptoms continue over the next 1 to 2 months you may need to follow-up with neurology on an outpatient basis for further evaluation -Please call your primary care provider's office upon discharge to schedule a hospital follow up within 1 week. -For any concerning signs or symptoms please call 911 or proceed to the nearest emergency department Physical Exam Narrative General: Alert, oriented, no apparent distress HEENT: Atraumatic, normocephalic Eyes: Anicteric, normal conjunctiva, extraocular movements grossly intact Neck: Supple Respiratory: Clear to auscultation bilaterally, normal respiratory effort Cardiovascular: Regular rate and rhythm GI: Soft, nontender, nondistended Extremities: No edema Musculoskeletal: Moving all extremities Neuro: Patient with some right hand paresthesias otherwise no overt focal neurological deficits Skin: No rashes appreciated Psych: Cooperative Weight / BMI Weight Weight: 137.4 kg Body Mass Index (BMI) 39.9 ABG / Lab / Microbiology Data 09/04/24 06:28 09/04/24 06:28 Laboratory: Laboratory Results - last 24 hr 09/03/24 18:00: Troponin T Hi Sens 2 Hr 6 09/03/24 20:45: Troponin T Hi Sens 4Hr 6 09/03/24 23:42: POC Glucose 230 H 09/04/24 06:28: WBC 4.5, RBC 5.27, Hgb 14.4, Hct 44.0, MCV 83.5, MCH 27.3, MCHC 32.7, RDW Std Deviation 41.2, RDW Coeff of Trell 13.6, Plt Count 329, MPV 9.1, Immature Gran % (Auto) 0.700, Neut % (Auto) 50.9, Lymph % (Auto) 35.6, [place] % (Auto) 8.2, Eos % (Auto) 3.1, Baso % (Auto) 1.5 H, Absolute Neuts (auto) 2.3, Absolute Lymphs (auto) 1.61, Nucleated RBC % 0, Sodium 138, Potassium 4.5, Chloride 104, Carbon Dioxide 23.9, Anion Gap 10, BUN 14, Creatinine 0.59 L, Estim Creat Clear Calc 261.61 H, Est GFR (MDRD) Non-Af 132, BUN/Creatinine Ratio 23.7 H, Glucose 204 H, Hemoglobin A1c 11.2 H, Calcium 9.1, Triglycerides 145, Cholesterol 215 H, LDL Cholesterol, Calc 143, VLDL Cholesterol 29, HDL Cholesterol 44, Cholesterol/HDL Ratio 4.94 09/04/24 06:40: POC Glucose 185 H 09/04/24 12:03: POC Glucose 248 H 09/04/24 16:36: POC Glucose 176 H Radiography Diagnostic Testing: Radiology Impression Echocardiogram 09/03/24 19:33 Interpretation Summary The estimated ejection fraction is 55-60 %. Normal LV systolic function Negative bubble study No previous echocardiogram to compare. Ordering Physician: Adam Meza Referring Physician: AMMY BARROW Performed By: Shereen Winkler RDCS Brain MRI 09/04/24 09:00 IMPRESSION: No acute intracranial abnormality. Reading Location: [facility] Instructions Discharge Diet: 2000 Calorie Control Diet and Carb Control Diet DC O2, CPAP, BIPAP Needs Home O2 Discharge instructions: No Meaningful Use Info Meaningful Use Meaningful Use Diagnoses (Choose all that apply): None applicable Ischemic Stroke Statin Dosing Therapy Reference: STATIN DOSE THERAPY REFERENCE: * Patients > 75 years receive moderate or high dose statin therapy. * Patients 75 years or YOUNGER should receive HIGH intensity statin dose unless contraindicated. You will be required to document reason for non-treatment if statin daily dose does not meet guidelines. HIGH DOSE STATIN THERAPY DAILY Atorvastatin > than or = to 40 mg Rosuvastatin > than or = to 20 mg Amlodipine + Atorvastatin > than or = to 2.5/40 mg Ezetimibe + Simvastatin 10/80 mg Simvastatin 80mg Discharge Plan Admission Admit Date/Time: 09/03/24 17:59 Primary Reason for Your Visit: Right arm weakness and tingling Attending Provider: Emely Villanueva Primary Care Provider: Ammy Barrow Consulting Providers: dAam Meza; Amari Blake; Holly Christensen; Dottie Childers; Manisha Thompson; Noni Burton; Esteban Rivas; Selena Dickey; Vick Fagan; Maycol Torres; Chepe Rojas; Kassidy Brush; Se Waterman; Priscila Pruett; Angie Darby; Eric Mcdonald; Damian Monaco; Fran Shankar; Brian Hyde; Judith Arreaga; Adele Baires Instructions Patient Instructions: Blood Sugar Check Steps Additional Instructions / Restrictions: DISCHARGE INSTRUCTIONS PLEASE READ *Please take this with you to your next doctors appointment* -Please call to establish care with endocrinology upon discharge for monitoring and management of your blood sugars, contact information below - Please continue to monitor your glucose and resume your home diabetes medications, this may need to be changed over time, please follow closely on discharge - If your symptoms continue over the next 1 to 2 months you may need to follow-up with neurology on an outpatient basis for further evaluation -Please call your primary care provider's office upon discharge to schedule a hospital follow up within 1 week. -For any concerning signs or symptoms please call 911 or proceed to the nearest emergency department Discharge Orders/Prescriptions Prescriptions: Continued fluvoxamine 100 mg tablet 200 mg PO QHS metformin 1,000 mg tablet 1,000 mg PO BID lisinopril 10 mg tablet 10 mg PO DAILY albuterol sulfate 90 mcg/actuation HFA aerosol inhaler 1 puff INHALATION Q4H PRN PRN (Reason: wheezing) bupropion HCl 150 mg tablet extended release 24 hr 150 mg PO DAILY Januvia 100 mg tablet 100 mg PO DAILY Referrals / Follow Up: Ammy Barrow MD [Primary Care Provider] - Within 2 Weeks Juan Fuchs MD [Med Staff - Courtesy Staff] - (Please call to establish care with endocrinology upon discharge for monitoring and management of your blood sugars) Care Physician,No Primary [Non-Staff] - Disposition Disposition (needs filled in before D/C Order can be placed): Home, Self Care Charges/Coding Visit Charges Inpatient E&M: [id number] Disch Hosp
--- NOTE | 2024-09-04 17:04 | CASEMGMT ---
Patient has order for discharge. Hospitalist states patient would like outpatient therapy at discharge, script received. CLOVIS HORNER in to dicuss discharge planning with patient. Patient states he would like to schedule outpatient therapy on his own. Patient denies further needs or concerns. CLOVIS HORNER provided script with [facility] information.
[2024-09-04 17:32] LABS: Bedside Glucose 176 mg/dL (74-106)
[2024-09-06 17:12] LABS: Bedside Glucose 216 mg/dL (74-106)
== END 2024-09-04 17:32 | disposition home or self-care (01) ==
LOC: ED 17:36 → PCU 18:40
PROVIDERS: Admitting Provider Family Medicine; Emergency Provider Emergency Medicine; PCP Family Medicine; Referring Provider Family Medicine; Visit Provider Internal Medicine
DX: R29.898 Other symptoms and signs involving the musculoskeletal system (principal); E66.01 Morbid (severe) obesity due to excess calories; Z68.41 Body mass index [BMI] 40.0-44.9, adult; E11.9 Type 2 diabetes mellitus without complications; R20.2 Paresthesia of skin; I10 Essential (primary) hypertension; Z91.141 Patient's other noncompliance with medication regimen due to financial hardship; Z56.6 Other physical and mental strain related to work; Z79.84 Long term (current) use of oral hypoglycemic drugs; Z79.899 Other long term (current) drug therapy
CPT/HCPCS: 36415; 70450; 70496; 70498; 70551; 80048; 80061; 82962; 83036; 84484; 85025; 85610; 85730; 93005; 93306; 94762; 97161; 97166; 97802; 99221; 99285; Q9967; G0378

== ENCOUNTER 2025-03-08 07:40 | Inpatient (IN) | payer MEDICAID, SELFPAY ==
[2025-03-08] VITALS (12 sets, daily range): BP systolic 119–148; BP diastolic 68–97; PULSE 104–132; RESP 14–24; TEMP 36.9–38.2; O2SAT 88–97; BMI 39.8
--- NOTE | 2025-03-08 08:29 | EKG12_ITS ---
Test Reason : Blood Pressure : */* mmHG Vent. Rate : 124 BPM Atrial Rate : 124 BPM P-R Int : 120 ms QRS Dur : 82 ms QT Int : 326 ms P-R-T Axes : 17 15 27 degrees QTcB Int : 468 ms Sinus tachycardia Otherwise normal ECG Confirmed by EDDIE NAPOLES, LOR ([id number]), society editor GAMALIEL ARROYO ([id number]) on 03/10/2025 7:27:58 AM Referred By: Confirmed By: LOR MORGAN MD
--- NOTE | 2025-03-08 08:29 | CT_ITS ---
PROCEDURE: ABDOMEN/PELVIS W IV CONT ONLY 03/08/2025 REASON FOR EXAM: GROIN ABSCESS, LOOK FOR GAS TECHNIQUE: Procedure Code: [id number] Modality: CT Procedure: ABDOMEN/PELVIS W IV CONT ONLY Coronal and Sagittal reconstruction series were provided. CONTRAST: 100 cc Isovue-300 One or more dose reduction techniques were used (e.g., Automated exposure control, adjustment of the mA and/or kV according to patient size, use of iterative reconstruction technique. RADIATION DOSE SUMMARY: DLP: 2083 mGycm COMPARISON: None FINDINGS: Lung bases: A calcified granulomas noted in the right lung base. The liver shows low-density Liver: Consistent with fatty infiltration, Hounsfield units = 28. Gallbladder: Unremarkable Spleen: Spleen is enlarged at 15.6 cm. Pancreas: Unremarkable Adrenals: Unremarkable Kidneys: There is a 0.2 cm nonobstructing stone in the midpole of the right kidney. There is no ureteral stone or hydronephrosis. Bladder: Unremarkable Reproductive Organs: Unremarkable Bowel: Gas and stool is noted throughout the colon Appendix: Unremarkable Lymph nodes: Unremarkable Vasculature: There is no significant atherosclerosis Peritoneum / Retroperitoneum: There is skin thickening and subcutaneous edema throughout the left upper inner thigh with no organized or drainable collection, and no visible soft tissue air. Bones: There is no acute bony abnormality. There is a 2.1 x 1.7 cm blastic focus in the right iliac, coronal image 95/172, axial image 125/216. There is a circumscribed lytic lesion in the right iliac measuring 1.9 x 0.7 cm, axial image 101/216. CT/Abdomen/Pelvis W IV Cont ONLY IMPRESSION: Consistent with fatty infiltration, Hounsfield units = 28. There is a 0.2 cm nonobstructing stone in the midpole of the right kidney. There is no ureteral stone or hydronephrosis. There is a 2.1 x 1.7 cm blastic focus in the right iliac, coronal image 95/172, axial image 125/216. There is a circumscribed lytic lesion in the right iliac measuring 1.9 x 0.7 cm, axial image 101/216. B one scan correlation is recommended. There is skin thickening and subcutaneous edema throughout the left upper inner thigh with no organized or drainable collection, and no visible soft tissue air. Reading Location: [facility]
--- NOTE | 2025-03-08 08:34 | EX.ED.DYSGE1 ---
HPI History of Present Illness Chief Complaint: Abscess Narrative Narrative: Patient is a 34-year-old male presenting to the emergency department for an abscess on his left upper thigh. Patient has a past medical history of diabetes. Patient states he first noticed that on Saturday. States it has been draining on its own starting Saturday and has a foul-smelling drainage. Reports that he has been very fatigued and then feverish as well. He denies chest pain, shortness of breath, abdominal pain, dysuria or hematuria. Denies any constipation or diarrhea. Took Tylenol yesterday for symptoms but nothing today. He denies any history of necrotizing fasciitis or IV drug use. Denies scrotal swelling, redness or pain. Denies penial pain or discharge. PFSH PFS Medical History Diabetes mellitus, type II HTN (hypertension) Home Medications ?Medication ?Instructions ?Recorded ?Last Taken ?Type fluvoxamine 100 mg tablet 200 mg PO QHS 09/03/24 03/05/25 History lisinopril 10 mg tablet 10 mg PO DAILY 09/03/24 03/05/25 History metformin 1,000 mg tablet 1,000 mg PO BID 09/03/24 03/05/25 History sitagliptin phosphate 100 mg 100 mg PO DAILY 09/03/24 03/05/25 History tablet (Januvia) albuterol sulfate 90 mcg/actuation 1 puff inhalation Q4H PRN wheezing 03/08/25 Unknown History aerosol inhaler insulin glargine 100 unit/mL (3 38 unit subcut QPM 03/08/25 03/05/25 History mL) subcutaneous pen (Lantus Solostar U-100 Insulin) Allergy/AdvReac Type Severity Reaction Status Date / Time cat dander (cats) Allergy Mild Other Verified 03/08/25 07:40 Family History Other CVA (cerebral vascular accident) Cancer Diabetes Heart disease Social History Smoking Status: Never smoker ROS ROS ED ROS Narrative See HPI EXAM Physical Exam Narrative Exam Narrative: Vital signs: Reviewed General: Alert and orientedx3. No acute distress HEENT: Head is normocephalic and atraumatic, sinuses nontender, pupils equal round and reactive. Nares are patent. Oropharynx and throat exams normal. Neck: Supple without lymphadenopathy nontender Cardiovascular: Regular rate and rhythm, no murmurs. No rubs or gallops. Normal S1 and S2 Respiratory: Clear to auscultation bilaterally. No wheezes, rales, rhonchi Abdominal: Soft and nontender. Normal bowel sounds. No guarding or rebound. Nonsurgical abdomen : done with operations supervisor chemical cleaning, Radha, at bedside. Left medial thigh erythema, warmth and fluctuance about 5 cm in length. There is a small 1 cm area in the center of the erythema of necrotic looking tissue with purulent foul-smelling drainage actively draining from the wound. There is no crepitus noted. There is no scrotal swelling, warmth, erythema or crepitus. There is no perianal erythema, fluctuance, warmth or crepitus. Extremities: No tenderness. No bruising. Normal range of motion. Normal sensation. Skin: No rash or redness. Neurological: Cranial nerves II through XII are grossly intact. Normal strength and sensation. Normal cerebellar function The rest of the physical exam is unremarkable Const Vital Signs: 03/08/25 07:41 03/08/25 08:42 03/08/25 09:00 Temperature 100.8 F H 99.1 F 99.2 F H Temperature Source Oral Oral Oral Pulse Rate 132 H 122 H 119 H Respiratory Rate 18 14 15 Blood Pressure 148/97 H 128/77 H 137/84 H Blood Pressure Mean 114 94 101 Pulse Ox 97 97 97 Oxygen Delivery Method Room Air Room Air Room Air Oxygen Flow Rate (L/min) 03/08/25 10:00 03/08/25 11:00 03/08/25 11:16 Temperature 99.3 F H 99.3 F H Temperature Source Oral Oral Pulse Rate 106 H 105 H Respiratory Rate 24 H 24 H Blood Pressure 124/77 H 119/80 Blood Pressure Mean 92 93 Pulse Ox 95 88 94 Oxygen Delivery Method Room Air Room Air Oxygen Flow Rate (L/min) 2 03/08/25 11:17 Temperature 99.3 F H Temperature Source Pulse Rate 105 H Respiratory Rate 24 H Blood Pressure 119/80 Blood Pressure Mean 93 Pulse Ox 94 Oxygen Delivery Method Oxygen Flow Rate (L/min) MDM MDM MDM Narrative Medical decision making narrative: Patient is a 34-year-old male presenting to emergency department for an abscess in his left medial thigh. Patient was seen and examined. Vitals are stable however he is tachycardic in the 130s and febrile at 100.8. He is resting in bed comfortably no acute distress. Differential includes but is not limited to: Cellulitis, abscess, sepsis, less likely necrotizing fasciitis based on physical exam There is an area of fluctuance that is actively draining on my exam in the left medial thigh. There is no crepitus of the area. On genital exam there is no erythema, warmth, swelling or crepitus of the scrotum or perianal area. Patient meeting sepsis criteria, blood cultures x 2 obtained. Lactic ordered. Fluid bolus ordered. Patient given vancomycin and Zosyn. Again I do not think this is necrotizing fasciitis, I do not think the patient requires addition of clindamycin. CBC with a leukocytosis of 11.7 and normal hemoglobin. CMP with hyponatremia of 130. Bicarb of 18.1 and anion gap of 17, glucose of 290. Additional blood work added on including a VBG and beta hydroxybutyrate to rule out DKA. No acidosis noted. Beta hydroxybutyrate was mildly elevated. Urinalysis with glucose and ketones, no evidence of infection. Lactic within normal limits. CT of the abdomen pelvis was ordered to assess for any air within the abscess or surrounding areas. This shows there is skin thickening and subcutaneous edema throughout the left upper inner thigh with no organized or drainable collection, and no visible soft tissue air. Patient updated on the findings and recommended admission given systemic signs of infection as well. He is agreeable. Patient admitted to Dr. Olson who requested that I consult general surgery. The wound is actively draining and there is no evidence of a fluid collection on CT however with the request I did speak with general surgeon on-call, Dr. Ruiz who will evaluate the patient. Clinical impression Thigh abscess Cellulitis History & Record Review Discussion w/independent historian: Patient Lab Data Attestation: I reviewed the patient's lab results. Labs: Laboratory Results - last 24 hr 03/08/25 03/08/25 08:45 08:58 WBC 11.7 H RBC 5.47 Hgb 14.8 Hct 44.6 MCV 81.5 MCH 27.1 MCHC 33.2 RDW Std Deviation 40.0 RDW Coeff of Trell 13.4 Plt Count 367 MPV 9.4 Immature Gran % (Auto) 0.700 Neut % (Auto) 81.8 H Lymph % (Auto) 8.2 L [place] % (Auto) 8.3 Eos % (Auto) 0.3 Baso % (Auto) 0.7 Absolute Neuts (auto) 9.6 H Absolute Lymphs (auto) 0.96 Nucleated RBC % 0 PT 14.0 INR 1.1 APTT 29.1 Sodium 130 L Potassium 4.1 Chloride 95 L Carbon Dioxide 18.1 L Anion Gap 17 H BUN 13 Creatinine 0.75 Estim Creat Clear Calc 205.47 Est GFR (MDRD) Non-Af 123 BUN/Creatinine Ratio 17.7 Glucose 290 H Lactic Acid 1.4 Calcium 9.0 Total Bilirubin 1.13 AST 15 ALT 24 Alkaline Phosphatase 73 Total Protein 7.0 Albumin 3.9 Globulin 3.1 Albumin/Globulin Ratio 1.3 b-Hydroxybutyric mmol/L 2.4 H Urine Color Yellow Urine Clarity Clear Urine pH 6.0 Ur Specific [place] 1.020 Urine Protein 100 H Urine Glucose (UA) 1000 H Urine Ketones 150 A* Urine Occult Blood Negative Urine Nitrite Negative Urine Bilirubin Negative Urine Urobilinogen Normal Ur Leukocyte Esterase Negative Urine RBC 0 SEEN Urine WBC 0 SEEN Ur Squamous Epith Cells 0 SEEN Urine Bacteria 0 SEEN Urine Mucus 0 SEEN ABG Data ABG results: ABG 03/08/25 10:03 Specimen Type LIANNA Sample Site Not entered VBG pH 7.45 H VBG pO2 49 H VBG HCO3 23 VBG Total CO2 24 VBG O2 Sat (Calc) 87 H VBG Base Excess -1 POC Mix VBG pCO2 Pt Tmp 32.5 L O2 Delivery Device Not entered Radiography Diagnostic Testing: Clinical Impression(s) from Imaging Studies Abdomen/Pelvis CT 03/08/25 08:29 IMPRESSION: Consistent with fatty infiltration, Hounsfield units = 28. There is a 0.2 cm nonobstructing stone in the midpole of the right kidney. There is no ureteral stone or hydronephrosis. There is a 2.1 x 1.7 cm blastic focus in the right iliac, coronal image 95/172, axial image 125/216. There is a circumscribed lytic lesion in the right iliac measuring 1.9 x 0.7 cm, axial image 101/216. Bone scan correlation is recommended. There is skin thickening and subcutaneous edema throughout the left upper inner thigh with no organized or drainable collection, and no visible soft tissue air. Reading Location: [facility] Discharge Plan Disposition Disposition: Acute Care Hospital [facility] Discharge Date/Time: 03/08/25 12:50
[2025-03-08] MEDS: Piperacil/Tazobactam 4.5 GM in 0.9% Normal Saline (100mL MB+) 100 ML IV (08:48)
[2025-03-08] MEDS: 0.9% Normal Saline (1000mL) 1,000 ML 999 ML IV (08:48)
[2025-03-08 09:09] LABS: Hematocrit 44.6 % (40-54); Hemoglobin 14.8 g/dL (13.0-16.5); Immature Granulocytes Count 0.080 X10^3/uL (0.0-0.0); Mean Corp Hgb Conc 33.2 g/dL (32-36); Mean Corpuscular Volume 81.5 fL (80-94); Mean Platelet Vol. 9.4 fl (6.2-12.0); NRBC Flagged by Analyzer 0 % (0-5); Platelet Count 367 K/mm3 (150-450); RBC Distribution Width CV 13.4 % (11.6-14.6); RBC Distribution Width SD 40.0 fl (35.1-43.9); Red Blood Count 5.47 M/mm3 (4.6-6.2); White Blood Count 11.7 K/mm3 (4.4-11.0)
[2025-03-08 09:13] LABS: Mucous, Urine 0 SEEN /hpf (<or=2+); Red Blood Cells-Urine 0 SEEN /hpf (0-5); Squamous Epithelial Cells - UA 0 SEEN /hpf (0-5)
[2025-03-08 09:18] LABS: Color, Urine Yellow (Yellow); Glucose, Dipstick 1000 mg/dl (Normal); Leukocyte Esterase-Dipstick Negative /ul (Negative); Nitrite-Dipstick Negative (Negative); Occult Blood-Urine Negative /ul (Negative); Protein-Dipstick 100 mg/dl (Negative); Specific Gravity, Urine 1.020 (1.002-1.030); Urine Bilirubin Dipstick Negative (Negative)
[2025-03-08 09:19] LABS: Partial Thromboplast Time 29.1 Seconds (24.1-36.2); Prothrombin Time (Protime)PT. 14.0 SECONDS (11.7-14.9)
[2025-03-08 09:23] LABS: Ketone-Dipstick 150 mg/dl (Negative)
[2025-03-08 09:40] LABS: AST(SGOT) 15 U/L (<=37); Alanine Aminotransfer ALT/SGPT 24 U/L (<=46); Albumin, Serum 3.9 g/dL (3.5-5.0); Alkaline Phosphatase 73 U/L (40-129); Anion Gap 17 (5-15); BUN 13 mg/dL (4-19); BUN/Creat Ratio 17.7 RATIO (10-20); Calcium,Total 9.0 mg/dL (7.6-11.0); Carbon Dioxide 18.1 mmol/L (21.0-32.0); Chloride 95 mmol/L (98-108); Estimated Creatinine Clearance 205.47 ml/min (50-250); Globulin 3.1 g/dL (2.2-4.2); Glucose 290 mg/dL (70-99); Potassium 4.1 mmol/L (3.3-5.1)
[2025-03-08] MEDS: Vancomycin HCl 2,000 MG in 0.9% Normal Saline (500mL Bag) 500 ML 250 MG IV (09:44)
[2025-03-08 10:08] LABS: SITE Not entered; VBG BASE EXCESS -1 mmol/L (-1.0-3.5); VBG PO2 49 mmHg (25-40); VBG SO2 87 % (50-70); VBG TCO2 24 mmol/L (23-33)
[2025-03-08 10:37] LABS: BETA-HYDROXYBUTYRATE 2.4 mmol/L (0.0-0.3)
--- NOTE | 2025-03-08 12:37 | EX.PCM.CON.S ---
Assessment & Plan Assessment/Plan (1) Abscess of left thigh: PLAN: I have been consulted in conjunction with Dr. Ruiz. He will independently evaluate this patient. Patient is a 34 y/o M who presents with a left inner thigh abscess x [address] scan confirms there is no undrained fluid collection. I have discussed with the patient that we will reassess tomorrow morning and if symptoms progress, Dr. Ruiz would need to perform an incision and debridement of the area. We will have the patient NPO after midnight in case surgical intervention is needed. I am recommending the area be cleansed with Hibiclens and water twice daily followed by a dry gauze dressing in place. We will consult [facility] wound nurse to assess the area tomorrow morning. Continue IV antibiotics and await pending cultures. Patient has had the opportunity to ask and have questions answered. Patient verbally understands and agrees with the plan. Thank you for allowing us to participate in this patient's care. HPI Consult Data Date of Consult: 03/08/25 HPI Narrative Reason for Consultation: Left inner thigh abscess HPI Narrative: WAYLON CHRISTY, is a 34 M who presents with a 3 day history of tender/painful left inner thigh/groin abscess. Patient states the lump open and drained overnight last night. He notes draining foul-smelling purulent drainage. Patient denies having any previous abscesses. He notes being a diabetic. He denies any history of MRSA or Staph infections. He is not currently on any antibiotics. He has felt feverish and fatigued. He denies any scrotal swelling. CT scan of ab/pel demonstrated: IMPRESSION: Consistent with fatty infiltration, Hounsfield units = 28. There is a 0.2 cm nonobstructing stone in the midpole of the right kidney. There is no ureteral stone or hydronephrosis. There is a 2.1 x 1.7 cm blastic focus in the right iliac, coronal image 95/172, axial image 125/216. There is a circumscribed lytic lesion in the right iliac measuring 1.9 x 0.7 cm, axial image 101/216. Bone scan correlation is recommended. There is skin thickening and subcutaneous edema throughout the left upper inner thigh with no organized or drainable collection, and no visible soft tissue air. WBC 11.7, Hgb 14.8, Hct 44.6, Plt 367 PFSH Medical History Diabetes mellitus, type II HTN (hypertension) Home Medications ?Medication ?Instructions ?Recorded ?Last Taken ?Type fluvoxamine 100 mg tablet 200 mg PO QHS 09/03/24 03/05/25 History lisinopril 10 mg tablet 10 mg PO DAILY 09/03/24 03/05/25 History metformin 1,000 mg tablet 1,000 mg PO BID 09/03/24 03/05/25 History sitagliptin phosphate 100 mg 100 mg PO DAILY 09/03/24 03/05/25 History tablet (Januvia) albuterol sulfate 90 mcg/actuation 1 puff inhalation Q4H PRN wheezing 03/08/25 Unknown History aerosol inhaler insulin glargine 100 unit/mL (3 38 unit subcut QPM 03/08/25 03/05/25 History mL) subcutaneous pen (Lantus Solostar U-100 Insulin) Allergy/AdvReac Type Severity Reaction Status Date / Time cat dander (cats) Allergy Mild Other Verified 03/08/25 07:40 Family History Other CVA (cerebral vascular accident) Cancer Diabetes Heart disease Social History Smoking Status: Never smoker ROS Constitutional Constitutional: Reports systems reviewed and no addt'l complaints, except as documented Eyes Eyes: Reports systems reviewed and no addt'l complaints, except as documented ENT HEENT: Reports systems reviewed and no addt'l complaints, except as documented Cardiovascular Cardiovascular: Reports systems reviewed and no addt'l complaints, except as documented Respiratory/Chest Respiratory/Chest: Reports systems reviewed and no addt'l complaints, except as documented Gastrointestinal Gastrointestinal: Reports systems reviewed and no addt'l complaints, except as documented Genitourinary Genitourinary: Reports systems reviewed and no addt'l complaints, except as documented Musculoskeletal Musculoskeletal: Reports systems reviewed and no addt'l complaints, except as documented Integumentary Integumentary: Reports systems reviewed and no addt'l complaints, except as documented Neurologic Neurologic: Reports systems reviewed and no addt'l complaints, except as documented Psychiatric Psychiatric: Reports systems reviewed and no addt'l complaints, except as documented Endocrine Endocrinology: Reports systems reviewed and no addt'l complaints, except as documented Hematologic/Lymphatic Hematologic/Lymphatic: Reports systems reviewed and no addt'l complaints, except as documented Allergic/Immunologic Allergic/Immunologic: Reports systems reviewed and no addt'l complaints, except as documented Physical Exam Const alert, oriented x3 and no apparent distress HEENT normocephalic and head/scalp atraumatic Eyes PERRL Neck full ROM Resp normal respiratory effort and clear to auscultation bilaterally Cardio Rate: tachycardic GI normal to inspection, nondistended, normoactive bowel sounds no CVA tenderness Back/Spine no CVA tenderness Extremity Extremity Narrative: Left upper inner thigh- small 1 cm diameter opening with necrotic tissue present centrally which measures approximately 2 cm. The abscess is opened and draining a foul-smelling brown drainage. There is approximately 4 cm surrounding erythema. No scrotal swelling noted. Skin Wounds: wounds noted other left medial upper thigh Neuro no focal motor deficits and no sensory deficits noted Psych mental status grossly normal Lab / Micro Data 03/08/25 08:45 03/08/25 08:45 Labs: Laboratory Results - last 24 hr 03/08/25 08:45: WBC 11.7 H, RBC 5.47, Hgb 14.8, Hct 44.6, MCV 81.5, MCH 27.1, MCHC 33.2, RDW Std Deviation 40.0, RDW Coeff of Trell 13.4, Plt Count 367, MPV 9.4, Immature Gran % (Auto) 0.700, Neut % (Auto) 81.8 H, Lymph % (Auto) 8.2 L, [place] % (Auto) 8.3, Eos % (Auto) 0.3, Baso % (Auto) 0.7, Absolute Neuts (auto) 9.6 H, Absolute Lymphs (auto) 0.96, Nucleated RBC % 0, PT 14.0, INR 1.1, APTT 29.1, Sodium 130 L, Potassium 4.1, Chloride 95 L, Carbon Dioxide 18.1 L, Anion Gap 17 H, BUN 13, Creatinine 0.75, Estim Creat Clear Calc 205.47, Est GFR (MDRD) Non-Af 123, BUN/Creatinine Ratio 17.7, Glucose 290 H, Lactic Acid 1.4, Calcium 9.0, Total Bilirubin 1.13, AST 15, ALT 24, Alkaline Phosphatase 73, Total Protein 7.0, Albumin 3.9, Globulin 3.1, Albumin/Globulin Ratio 1.3, b-Hydroxybutyric mmol/L 2.4 H 03/08/25 08:58: Urine Color Yellow, Urine Clarity Clear, Urine pH 6.0, Ur Specific [place] 1.020, Urine Protein 100 H, Urine Glucose (UA) 1000 H, Urine Ketones 150 A*, Urine Occult Blood Negative, Urine Nitrite Negative, Urine Bilirubin Negative, Urine Urobilinogen Normal, Ur Leukocyte Esterase Negative, Urine RBC 0 SEEN, Urine WBC 0 SEEN, Ur Squamous Epith Cells 0 SEEN, Urine Bacteria 0 SEEN, Urine Mucus 0 SEEN ABG Data ABG results: ABG 03/08/25 10:03 Specimen Type LIANNA Sample Site Not entered VBG pH 7.45 H VBG pO2 49 H VBG HCO3 23 VBG Total CO2 24 VBG O2 Sat (Calc) 87 H VBG Base Excess -1 POC Mix VBG pCO2 Pt Tmp 32.5 L O2 Delivery Device Not entered Imaging Radiology Impression Abdomen/Pelvis CT 03/08/25 08:29 IMPRESSION: Consistent with fatty infiltration, Hounsfield units = 28. There is a 0.2 cm nonobstructing stone in the midpole of the right kidney. There is no ureteral stone or hydronephrosis. There is a 2.1 x 1.7 cm blastic focus in the right iliac, coronal image 95/172, axial image 125/216. There is a circumscribed lytic lesion in the right iliac measuring 1.9 x 0.7 cm, axial image 101/216. Bone scan correlation is recommended. There is skin thickening and subcutaneous edema throughout the left upper inner thigh with no organized or drainable collection, and no visible soft tissue air. Reading Location: [facility] Charges/Coding Visit Charges Inpatient E&M: 71173 Init Hosp L2
--- NOTE | 2025-03-08 13:10 | PCM.RX.CS ---
Consult Antibiotic Management Pharmacy has been consulted to manage selected antibiotic: Vancomycin Type of Intervention Type of Consult: New start Suspected Infection Suspected Infection: Skin/Soft tissue Prior Doses of Antibiotics Prior Doses of Antibiotics Received/Current Regimen: Vancomycin 2000 mg IV x 1 given 03/08/25 @ 0944 Labs Labs: Sodium 130 mmol/L (133-145) L 03/08/25 08:45 Potassium 4.1 mmol/L (3.3-5.1) 03/08/25 08:45 Chloride 95 mmol/L (98-108) L 03/08/25 08:45 Carbon Dioxide 18.1 mmol/L (21.0-32.0) L 03/08/25 08:45 Anion Gap 17 (5-15) H 03/08/25 08:45 BUN 13 mg/dL (4-19) 03/08/25 08:45 Creatinine 0.75 mg/dL (0.70-1.20) 03/08/25 08:45 Est GFR (MDRD) Non-Af 123 (>60) 03/08/25 08:45 BUN/Creatinine Ratio 17.7 RATIO (10-20) 03/08/25 08:45 Glucose 290 mg/dL (70-99) H 03/08/25 08:45 Dosing Weight Weight used for dosin kg Estimated Creatinine Clearance Estimated Creatinine Clearance: ~ 205 Goal Trough Goal Trough: 10-15 mcg/mL Pharmacy Plan for Drug Dosing Pharmacy Plan for Drug Dosing: Vancomycin 2000 mg IV x 1 followed by 1750 mg Q12H Pharmacy Service will continue to monitor and adjust dosing as required. Follow-Up Labs Follow-Up Labs: Trough: Vancomycin Date/Time Labs Ordered Labs to be done on [date and time ordered]: 03/09/25 @ 9122
[2025-03-08] MEDS: 0.9% Normal Saline (250mL Bag) 250 ML 15 ML IV (14:03)
[2025-03-08] MEDS: Piperacil/Tazobactam 3.375 GM in 0.9% Normal Saline (50mL MB+) 50 ML IV ×2 (14:05→22:20)
--- NOTE | 2025-03-08 16:38 | EX.ED.DYSGE1 ---
HPI History of Present Illness Chief Complaint: Abscess PFSH [facility] Medical History Diabetes mellitus, type II HTN (hypertension) Home Medications ?Medication ?Instructions ?Recorded ?Last Taken ?Type fluvoxamine 100 mg tablet 200 mg PO QHS 09/03/24 03/05/25 History lisinopril 10 mg tablet 10 mg PO DAILY 09/03/24 03/05/25 History metformin 1,000 mg tablet 1,000 mg PO BID 09/03/24 03/05/25 History sitagliptin phosphate 100 mg 100 mg PO DAILY 09/03/24 03/05/25 History tablet (Januvia) albuterol sulfate 90 mcg/actuation 1 puff inhalation Q4H PRN wheezing 03/08/25 Unknown History aerosol inhaler insulin glargine 100 unit/mL (3 38 unit subcut QPM 03/08/25 03/05/25 History mL) subcutaneous pen (Lantus Solostar U-100 Insulin) Allergy/AdvReac Type Severity Reaction Status Date / Time cat dander (cats) Allergy Mild Other Verified 03/08/25 07:40 Family History Other CVA (cerebral vascular accident) Cancer Diabetes Heart disease Social History Smoking Status: Never smoker EXAM Physical Exam Const Vital Signs: 03/08/25 07:41 03/08/25 08:42 03/08/25 09:00 Temperature 100.8 F H 99.1 F 99.2 F H Temperature Source Oral Oral Oral Pulse Rate 132 H 122 H 119 H Respiratory Rate 18 14 15 Blood Pressure 148/97 H 128/77 H 137/84 H Blood Pressure Mean 114 94 101 Pulse Ox 97 97 97 Oxygen Delivery Method Room Air Room Air Room Air Oxygen Flow Rate (L/min) 03/08/25 10:00 03/08/25 11:00 03/08/25 11:16 Temperature 99.3 F H 99.3 F H Temperature Source Oral Oral Pulse Rate 106 H 105 H Respiratory Rate 24 H 24 H Blood Pressure 124/77 H 119/80 Blood Pressure Mean 92 93 Pulse Ox 95 88 94 Oxygen Delivery Method Room Air Room Air Oxygen Flow Rate (L/min) 2 03/08/25 11:17 Temperature 99.3 F H Temperature Source Pulse Rate 105 H Respiratory Rate 24 H Blood Pressure 119/80 Blood Pressure Mean 93 Pulse Ox 94 Oxygen Delivery Method Oxygen Flow Rate (L/min) [facility] Lab Data Labs: Laboratory Results - last 24 hr 03/08/25 03/08/25 08:45 08:58 WBC 11.7 H RBC 5.47 Hgb 14.8 Hct 44.6 MCV 81.5 MCH 27.1 MCHC 33.2 RDW Std Deviation 40.0 RDW Coeff of Trell 13.4 Plt Count 367 MPV 9.4 Immature Gran % (Auto) 0.700 Neut % (Auto) 81.8 H Lymph % (Auto) 8.2 L [place] % (Auto) 8.3 Eos % (Auto) 0.3 Baso % (Auto) 0.7 Absolute Neuts (auto) 9.6 H Absolute Lymphs (auto) 0.96 Nucleated RBC % 0 PT 14.0 INR 1.1 APTT 29.1 Sodium 130 L Potassium 4.1 Chloride 95 L Carbon Dioxide 18.1 L Anion Gap 17 H BUN 13 Creatinine 0.75 Estim Creat Clear Calc 205.47 Est GFR (MDRD) Non-Af 123 BUN/Creatinine Ratio 17.7 Glucose 290 H Lactic Acid 1.4 Calcium 9.0 Total Bilirubin 1.13 AST 15 ALT 24 Alkaline Phosphatase 73 Total Protein 7.0 Albumin 3.9 Globulin 3.1 Albumin/Globulin Ratio 1.3 b-Hydroxybutyric mmol/L 2.4 H Urine Color Yellow Urine Clarity Clear Urine pH 6.0 Ur Specific [place] 1.020 Urine Protein 100 H Urine Glucose (UA) 1000 H Urine Ketones 150 A* Urine Occult Blood Negative Urine Nitrite Negative Urine Bilirubin Negative Urine Urobilinogen Normal Ur Leukocyte Esterase Negative Urine RBC 0 SEEN Urine WBC 0 SEEN Ur Squamous Epith Cells 0 SEEN Urine Bacteria 0 SEEN Urine Mucus 0 SEEN ABG Data ABG results: ABG 03/08/25 10:03 Specimen Type LIANNA Sample Site Not entered VBG pH 7.45 H VBG pO2 49 H VBG HCO3 23 VBG Total CO2 24 VBG O2 Sat (Calc) 87 H VBG Base Excess -1 POC Mix VBG pCO2 Pt Tmp 32.5 L O2 Delivery Device Not entered Radiography Diagnostic Testing: Clinical Impression(s) from Imaging Studies Abdomen/Pelvis CT 03/08/25 08:29 IMPRESSION: Consistent with fatty infiltration, Hounsfield units = 28. There is a 0.2 cm nonobstructing stone in the midpole of the right kidney. There is no ureteral stone or hydronephrosis. There is a 2.1 x 1.7 cm blastic focus in the right iliac, coronal image 95/172, axial image 125/216. There is a circumscribed lytic lesion in the right iliac measuring 1.9 x 0.7 cm, axial image 101/216. Bone scan correlation is recommended. There is skin thickening and subcutaneous edema throughout the left upper inner thigh with no organized or drainable collection, and no visible soft tissue air. Reading Location: [facility] Discharge Plan Disposition Disposition: Acute Care Hospital [facility] Discharge Date/Time: 03/08/25 12:50
--- NOTE | 2025-03-08 19:05 | PCM.HP.STD ---
HPI - General General Date of Admission: 03/08/25 Date of Service: 03/08/25 Chief Complaint: Left thigh redness with drainage HPI Narrative WAYLON CHRISTY, is a 34 M who presents to the emergency room at [facility] with complaints of left thigh redness and drainage of purulent material over the past 3 days. Patient stated it had been draining starting 24 hours ago. He states he has felt feverish at home. Patient has a history of diabetes, he cannot relate what his last A1c result was. Labs obtained revealed a white blood cell count at 11.7, chemistry profile was abnormal for sodium of 130, glucose was 290, CT of the abdomen and pelvis showed a nonobstructing stone in the midpole of the right kidney, there was noted to be a blastic focus in the right iliac area with a circumscribed lytic lesion in the right iliac measuring 1.9 x 0.7 cm. A bone scan correlation was recommended. There was skin thickening and subcutaneous edema throughout the left upper inner thigh with no organized or drainable collection. There was no visible soft tissue air. Cultures were obtained in the emergency room, patient was given IV Zosyn and IV vancomycin. Patient will be admitted to [facility] for further treatment and be seen in consultation by general surgery. Patient will remain on Zosyn and vancomycin for the time being. [facility] Medical History Diabetes mellitus, type II HTN (hypertension) Home Medications ?Medication ?Instructions ?Recorded ?Last Taken ?Type fluvoxamine 100 mg tablet 200 mg PO QHS 09/03/24 03/05/25 History lisinopril 10 mg tablet 10 mg PO DAILY 09/03/24 03/05/25 History metformin 1,000 mg tablet 1,000 mg PO BID 09/03/24 03/05/25 History sitagliptin phosphate 100 mg 100 mg PO DAILY 09/03/24 03/05/25 History tablet (Januvia) albuterol sulfate 90 mcg/actuation 1 puff inhalation Q4H PRN wheezing 03/08/25 Unknown History aerosol inhaler insulin glargine 100 unit/mL (3 38 unit subcut QPM 03/08/25 03/05/25 History mL) subcutaneous pen (Lantus Solostar U-100 Insulin) doxycycline monohydrate 100 mg 100 mg PO BID #14 tabs 03/09/25 Unknown Rx tablet Allergy/AdvReac Type Severity Reaction Status Date / Time cat dander (cats) Allergy Mild Other Verified 03/08/25 07:40 Family History Other CVA (cerebral vascular accident) Cancer Diabetes Heart disease Social History Smoking Status: Never smoker ROS ROS Narrative Patient complains of left thigh redness and tenderness over the upper inner aspect of the left thigh Constitutional Constitutional: Denies anorexia, change in weight, fever(s), night sweats or weakness Eyes Eyes: Denies blurry vision, change in vision, discharge from eye(s) or eye pain Cardiovascular Cardiovascular: Denies chest pain, claudication, edema or palpitations Respiratory/Chest Respiratory/Chest: Denies cough, hemoptysis, shortness of breath at rest or shortness of breath with exertion Gastrointestinal Gastrointestinal: Denies abdominal pain, constipation, diarrhea, hematemesis, hematochezia, melena, nausea or vomiting Genitourinary Genitourinary: Denies dysuria, hematuria, urinary frequency, urinary hesitancy, urinary incontinence or urinary urgency Musculoskeletal Musculoskeletal: Denies back pain, joint pain, joint stiffness, joint swelling, myalgias or neck pain Neurologic Neurologic: Denies abnormal gait, abnormal speech, dizziness, focal weakness, headache(s), loss of vision, numbness, other visual disturbances, paresthesias, syncope or tingling Psychiatric Psychiatric: Denies anxiety, cognitive impairment, depression, irritability, mood swings or suicidal ideation Endocrine Endocrinology: Denies change in body appearance, cold intolerance, excessive sweating, heat intolerance, polydipsia or polyuria Hematologic/Lymphatic Hematologic/Lymphatic: Denies none, anemia, easy bleeding, easy bruising or lymphadenopathy Allergic/Immunologic Allergic/Immunologic: Denies rhinitis, urticaria, eczemia or asthma Vital Signs Vital Signs Vital Signs: 03/08/25 07:41 03/08/25 08:42 03/08/25 09:00 Temperature 100.8 F H 99.1 F 99.2 F H Temperature Source Oral Oral Oral Pulse Rate 132 H 122 H 119 H Respiratory Rate 18 14 15 Respiratory Effort Respiratory Depth Respiratory Pattern Blood Pressure 148/97 H 128/77 H 137/84 H Blood Pressure Mean 114 94 101 Blood Pressure Source Blood Pressure Position Blood Pressure Location Pulse Ox 97 97 97 Oxygen Delivery Method Room Air Room Air Room Air Oxygen Flow Rate (L/min) 03/08/25 10:00 03/08/25 11:00 03/08/25 11:16 Temperature 99.3 F H 99.3 F H Temperature Source Oral Oral Pulse Rate 106 H 105 H Respiratory Rate 24 H 24 H Respiratory Effort Respiratory Depth Respiratory Pattern Blood Pressure 124/77 H 119/80 Blood Pressure Mean 92 93 Blood Pressure Source Blood Pressure Position Blood Pressure Location Pulse Ox 95 88 94 Oxygen Delivery Method Room Air Room Air Oxygen Flow Rate (L/min) 2 03/08/25 11:17 03/08/25 12:00 03/08/25 12:54 Temperature 99.3 F H 99.5 F H Temperature Source Oral Pulse Rate 105 H 105 H 106 H Respiratory Rate 24 H 20 H Respiratory Effort Normal Non-Labored Respiratory Depth Normal Respiratory Pattern Normal Blood Pressure 119/80 124/76 H Blood Pressure Mean 93 92 Blood Pressure Source Blood Pressure Position Blood Pressure Location Pulse Ox 94 95 Oxygen Delivery Method Nasal Cannula Room Air Oxygen Flow Rate (L/min) 2 03/08/25 13:37 03/08/25 16:35 Temperature 98.4 F Temperature Source Oral Pulse Rate 109 H 104 H Respiratory Rate 18 Respiratory Effort Normal Non-Labored Respiratory Depth Normal Respiratory Pattern Normal Blood Pressure 139/85 H Blood Pressure Mean 103 Blood Pressure Source Monitor Blood Pressure Position Semi-Fowlers Blood Pressure Location Left Arm Pulse Ox 95 Oxygen Delivery Method Room Air Room Air Oxygen Flow Rate (L/min) Weight Weight: 136.985 kg Body Mass Index (BMI) 39.8 Physical Exam Const alert, oriented x3, no apparent distress and healthy appearing General Appearance: cooperative, well kempt and well developed Orientation / Consciousness: awake, oriented to person, oriented to place and oriented to time HEENT normocephalic and moist oral mucous membranes Eyes PERRL, EOMs intact bilaterally and conjunctivae normal Neck supple, no JVD, thyroid normal and no carotid bruits General: trachea midline Resp normal respiratory effort, no retractions, no use of accessory muscles and clear to auscultation bilaterally Auscultation: Negative for rales, rhonchi or wheezes Cardio regular rate, regular rhythm, S1 normal heart sound, S2 normal heart sound, no murmurs, no rub and no gallops GI normal to inspection, nondistended, normoactive bowel sounds, soft to palpation, non-tender and non-distended Extremity no clubbing, cyanosis or edema Skin Skin Narrative: There is an open area over the left upper inner thigh near the groin area that is approximately 2 to 3 cm in diameter, this area is indurated and reddened Neuro oriented x3, CN's II-XII intact bilaterally, no focal motor deficits and no sensory deficits noted Sensorium / Orientation: awake and alert Speech: speech normal Psych affect normal Results Lab / Micro Data 03/09/25 05:18 03/09/25 05:18 Labs: Laboratory Results - last 24 hr 03/08/25 08:45: WBC 11.7 H, RBC 5.47, Hgb 14.8, Hct 44.6, MCV 81.5, MCH 27.1, MCHC 33.2, RDW Std Deviation 40.0, RDW Coeff of Trell 13.4, Plt Count 367, MPV 9.4, Immature Gran % (Auto) 0.700, Neut % (Auto) 81.8 H, Lymph % (Auto) 8.2 L, [place] % (Auto) 8.3, Eos % (Auto) 0.3, Baso % (Auto) 0.7, Absolute Neuts (auto) 9.6 H, Absolute Lymphs (auto) 0.96, Nucleated RBC % 0, PT 14.0, INR 1.1, APTT 29.1, Sodium 130 L, Potassium 4.1, Chloride 95 L, Carbon Dioxide 18.1 L, Anion Gap 17 H, BUN 13, Creatinine 0.75, Estim Creat Clear Calc 205.47, Est GFR (MDRD) Non-Af 123, BUN/Creatinine Ratio 17.7, Glucose 290 H, Lactic Acid 1.4, Calcium 9.0, Total Bilirubin 1.13, AST 15, ALT 24, Alkaline Phosphatase 73, Total Protein 7.0, Albumin 3.9, Globulin 3.1, Albumin/Globulin Ratio 1.3, b-Hydroxybutyric mmol/L 2.4 H 03/08/25 08:58: Urine Color Yellow, Urine Clarity Clear, Urine pH 6.0, Ur Specific [place] 1.020, Urine Protein 100 H, Urine Glucose (UA) 1000 H, Urine Ketones 150 A*, Urine Occult Blood Negative, Urine Nitrite Negative, Urine Bilirubin Negative, Urine Urobilinogen Normal, Ur Leukocyte Esterase Negative, Urine RBC 0 SEEN, Urine WBC 0 SEEN, Ur Squamous Epith Cells 0 SEEN, Urine Bacteria 0 SEEN, Urine Mucus 0 SEEN 03/08/25 13:40: POC Glucose 237 H 03/08/25 16:12: POC Glucose 207 H Micro: Microbiology 03/08/25 12:10 Wound - Groin Skin and Soft Tissue MRSA/MSSA (PCR - Final ABG Data ABG results: ABG 03/08/25 10:03 Specimen Type LIANNA Sample Site Not entered VBG pH 7.45 H VBG pO2 49 H VBG HCO3 23 VBG Total CO2 24 VBG O2 Sat (Calc) 87 H VBG Base Excess -1 POC Mix VBG pCO2 Pt Tmp 32.5 L O2 Delivery Device Not entered Imaging Radiology Impression Abdomen/Pelvis CT 03/08/25 08:29 IMPRESSION: Consistent with fatty infiltration, Hounsfield units = 28. There is a 0.2 cm nonobstructing stone in the midpole of the right kidney. There is no ureteral stone or hydronephrosis. There is a 2.1 x 1.7 cm blastic focus in the right iliac, coronal image 95/172, axial image 125/216. There is a circumscribed lytic lesion in the right iliac measuring 1.9 x 0.7 cm, axial image 101/216. Bone scan correlation is recommended. There is skin thickening and subcutaneous edema throughout the left upper inner thigh with no organized or drainable collection, and no visible soft tissue air. Reading Location: [facility] Assessment & Plan Assessment/Plan (1) Abscess of left thigh: PLAN: Plan 1. Abscess of the left inner thigh-patient will be admitted to [facility] 3, IV Zosyn and vancomycin will be continued, patient will be seen in consultation by general surgery, labs will be monitored #2 type 2 diabetes-patient's blood sugars will be monitored, sliding scale insulin will be administered as needed #3 hypertension-patient will remain on lisinopril Total clinical time spent by myself addressing the patient's medical issues, reviewing all of his data, and collaborating with patient's care team: 55 minutes Charges/Coding Visit Charges Inpatient E&M: 71066 Init Hosp L2
[2025-03-08] MEDS: Insulin Glargine-YFGN 100 UNIT/ML Pen 38 UNIT SC (21:55)
[2025-03-08] MEDS: Vancomycin HCl 1,750 MG in 0.9% Normal Saline (500mL Bag) 500 ML 250 MG IV (23:31)
[2025-03-09 03:53] VITALS: BP 110/79; PULSE 105; RESP 16; TEMP 36.8; O2SAT 99
[2025-03-09 05:41] LABS: Hematocrit 39.7 % (40-54); Hemoglobin 13.1 g/dL (13.0-16.5); Immature Granulocytes Count 0.070 X10^3/uL (0.0-0.0); Mean Corp Hgb Conc 33.0 g/dL (32-36); Mean Corpuscular Volume 82.7 fL (80-94); Mean Platelet Vol. 9.2 fl (6.2-12.0); NRBC Flagged by Analyzer 0 % (0-5); Platelet Count 321 K/mm3 (150-450); RBC Distribution Width CV 13.5 % (11.6-14.6); RBC Distribution Width SD 41.1 fl (35.1-43.9); Red Blood Count 4.80 M/mm3 (4.6-6.2); White Blood Count 8.7 K/mm3 (4.4-11.0)
[2025-03-09] MEDS: Piperacil/Tazobactam 3.375 GM in 0.9% Normal Saline (50mL MB+) 50 ML IV (06:11)
[2025-03-09 06:14] LABS: Anion Gap 14 (5-15); BUN 14 mg/dL (4-19); BUN/Creat Ratio 20.4 RATIO (10-20); Calcium,Total 8.3 mg/dL (7.6-11.0); Carbon Dioxide 20.4 mmol/L (21.0-32.0); Chloride 100 mmol/L (98-108); Estimated Creatinine Clearance 226.62 ml/min (50-250); Glucose 257 mg/dL (70-99); Potassium 4.4 mmol/L (3.3-5.1)
--- NOTE | 2025-03-09 07:35 | PN.SURG_ITS ---
Subjective Subjective Patient reports being comfortable Objective Data Objective Data Vital Signs: Vital Signs Temp Pulse Resp BP Pulse Ox O2 Del Method O2 Flow Rate 98.2 F 105 H 16 110/79 99 Room Air 2 03/09/25 03:53 03/09/25 03:53 03/09/25 03:53 03/09/25 03:53 03/09/25 03:53 03/09/25 03:53 03/08/25 12:00 Oxygen Flow Rate (L/min) 2 Oxygen Delivery Method Room Air Weight: 302 lb Body Mass Index (BMI) 39.8 Intake & Output: Intake and Output for Last 24 Hours 03/07/25 03/08/25 03/09/25 23:59 23:59 23:59 Intake Total 2514.25 / 2514.25 585 / 585 Balance 2514. / 2513.25 585 / 585 Lab / Micro Data 03/09/25 05:18 03/09/25 05:18 Labs: Laboratory Results - last 24 hr 03/08/25 08:45: WBC 11.7 H, RBC 5.47, Hgb 14.8, Hct 44.6, MCV 81.5, MCH 27.1, MCHC 33.2, RDW Std Deviation 40.0, RDW Coeff of Trell 13.4, Plt Count 367, MPV 9.4, Immature Gran % (Auto) 0.700, Neut % (Auto) 81.8 H, Lymph % (Auto) 8.2 L, [place] % (Auto) 8.3, Eos % (Auto) 0.3, Baso % (Auto) 0.7, Absolute Neuts (auto) 9.6 H, Absolute Lymphs (auto) 0.96, Nucleated RBC % 0, PT 14.0, INR 1.1, APTT 29.1, Sodium 130 L, Potassium 4.1, Chloride 95 L, Carbon Dioxide 18.1 L, Anion Gap 17 H, BUN 13, Creatinine 0.75, Estim Creat Clear Calc 205.47, Est GFR (MDRD) Non-Af 123, BUN/Creatinine Ratio 17.7, Glucose 290 H, Lactic Acid 1.4, Calcium 9.0, Total Bilirubin 1.13, AST 15, ALT 24, Alkaline Phosphatase 73, Total Protein 7.0, Albumin 3.9, Globulin 3.1, Albumin/Globulin Ratio 1.3, b- Hydroxybutyric mmol/L 2.4 H 03/08/25 08:58: Urine Color Yellow, Urine Clarity Clear, Urine pH 6.0, Ur Specific [place] 1.020, Urine Protein 100 H, Urine Glucose (UA) 1000 H, Urine Ketones 150 A*, Urine Occult Blood Negative, Urine Nitrite Negative, Urine Bilirubin Negative, Urine Urobilinogen Normal, Ur Leukocyte Esterase Negative, Urine RBC 0 SEEN, Urine WBC 0 SEEN, Ur Squamous Epith Cells 0 SEEN, Urine Bacteria 0 SEEN, Urine Mucus 0 SEEN 03/08/25 13:40: POC Glucose 237 H 03/08/25 16:12: POC Glucose 207 H 03/08/25 21:50: POC Glucose 212 H 03/09/25 05:18: WBC 8.7, RBC 4.80, Hgb 13.1, Hct 39.7 L, MCV 82.7, MCH 27.3, MCHC 33.0, RDW Std Deviation 41.1, RDW Coeff of Trell 13.5, Plt Count 321, MPV 9.2, Immature Gran % (Auto) 0.800, Neut % (Auto) 77.8 H, Lymph % (Auto) 12.[address] L, [place] % (Auto) 7.3, Eos % (Auto) 0.5, Baso % (Auto) 0.7, Absolute Neuts (auto) 6.8, Absolute Lymphs (auto) 1.12, Nucleated RBC % 0, Sodium 134, Potassium 4.4, Chloride 100, Carbon Dioxide 20.4 L, Anion Gap 14, BUN 14, Creatinine 0.68 L, Estim Creat Clear Calc 226.62, Est GFR (MDRD) Non-Af 127, BUN/Creatinine Ratio 20.4 H, Glucose 257 H, Hemoglobin A1c 9.4 H, Calcium 8.3 03/09/25 06:07: POC Glucose 233 H Micro: Microbiology 03/08/25 12:10 Wound - Groin Skin and Soft Tissue MRSA/MSSA (PCR - Final ABG Data ABG results: ABG 03/08/25 10:03 Specimen Type LIANNA Sample Site Not entered VBG pH 7.45 H VBG pO2 49 H VBG HCO3 23 VBG Total CO2 24 VBG O2 Sat (Calc) 87 H VBG Base Excess -1 POC Mix VBG pCO2 Pt Tmp 32.5 L O2 Delivery Device Not entered Radiography Diagnostic Testing: Radiology Impression Abdomen/Pelvis CT 03/08/25 08:29 IMPRESSION: Consistent with fatty infiltration, Hounsfield units = 28. There is a 0.2 cm nonobstructing stone in the midpole of the right kidney. There is no ureteral stone or hydronephrosis. There is a 2.1 x 1.7 cm blastic focus in the right iliac, coronal image 95/172, axial image 125/216. There is a circumscribed lytic lesion in the right iliac measuring 1.9 x 0.7 cm, axial image 101/216. Bone scan correlation is recommended. There is skin thickening and subcutaneous edema throughout the left upper inner thigh with no organized or drainable collection, and no visible soft tissue air. Reading [facility] Physical Exam Const oriented x3 and no apparent distress Resp normal respiratory effort GI soft to palpation and non-tender Assessment & Plan Assessment/Plan (1) Abscess of left thigh: PLAN: Patient has an abscess of the proximal left thigh. The area has about a centimeter opening and it is wide open. I advised our wound nurse to flush it out and pack it. The patient may be discharged home today on oral antibiotics change packing twice daily and follow-up with me in 1 week. Kevin Ruiz MD Pager: [facility] [address] [place] [address], [address] [place] [address] Office:
--- NOTE | 2025-03-09 07:39 | WOUNDNOTE ---
wound photo: left upper thigh/groin
[2025-03-09 08:01] VITALS: BP 123/76; PULSE 95; RESP 16; TEMP 36.9; O2SAT 98
[2025-03-09 10:03] VITALS: BP 134/85; PULSE 102; RESP 18; TEMP 36.9; O2SAT 97
[2025-03-09] MEDS: LINAGLIPTIN 5 MG TABLET PO (10:05)
[2025-03-09] MEDS: Vancomycin HCl 1,750 MG in 0.9% Normal Saline (500mL Bag) 500 ML 250 MG IV (10:56)
[2025-03-09] MEDS: FLU VACCINE 2025-26(6MOS UP) 45 MCG/0.5 ML SYRINGE IM (10:57)
--- NOTE | 2025-03-09 12:58 | DCINST_ITS ---
Discharge Instructions DC O2, CPAP, BIPAP needs Home O2 Discharge instructions: No Dressing / Incision Discharge Activity: Return to Normal Activity Weight Bearing Status: Full weight bearing Follow Up Care Test Results: Test results from this visit will be discussed in further detail at your follow- up appointment, if applicable. Discharge Plan Admission Admit Date/Time: 03/08/25 11:28 Primary Reason for Your Visit: Left upper thigh cellulitis/abscess Attending Provider: Vladimir Olson Primary Care Provider: Danny Kraus Consulting Providers: Kevin Ruiz Instructions Additional Instructions / Restrictions: Pack your left thigh wound twice a day Discharge Orders/Prescriptions Prescriptions: New doxycycline monohydrate 100 mg tablet 100 mg PO BID Qty: 14 0RF Continued fluvoxamine 100 mg tablet 200 mg PO QHS metformin 1,000 mg tablet 1,000 mg PO BID lisinopril 10 mg tablet 10 mg PO DAILY Januvia 100 mg tablet 100 mg PO DAILY insulin glargine [Lantus Solostar U-100 Insulin] 100 unit/mL (3 mL) insulin pen 38 unit subcut QPM albuterol sulfate 90 mcg/actuation HFA aerosol inhaler 1 puff INHALATION Q4H PRN (Reason: wheezing) Referrals / Follow Up: Kevin Ruiz MD [Med Staff - Active Staff, General Surgery] - In 1 Week Referral Note: Call to make a follow-up appointment for next week Danny Kraus MD [Primary Care Provider, Family Practice] - See Referral Note Referral Note: In 2 weeks Disposition Disposition (needs filled in before D/C Order can be placed): Home, Self Care
--- NOTE | 2025-03-09 13:09 | PCM.DC.SUM ---
Providers Date of Admission: 03/08/25 Date of Discharge: 03/09/25 Primary Care Physician: Dr. Danny Kraus MD Consultations 03/08/25 12:54 Consult: General Surgery Routine Consulting Provider: Kevin Ruiz Reason for Consult: abcess EMERGENT Consult: No MD Notified: Yes Date Notified: 03/08/25 Time Notified: 11:34 Method of Notification: Verbal 03/08/25 16:04 Consult: Onc/Wound/chemist helper Routine Comment: Reason For Visit: LEFT THIGH ABCESS Diagnosis Discharge Diagnosis (1) Abscess of left thigh: Status: Acute Code(s): L02.416 - Cutaneous abscess of left lower limb Plan 1. Abscess of the left inner thigh- #2 type 2 diabetes-patient's blood sugars will be monitored, sliding scale insulin will be administered as needed #3 hypertension-patient will remain on lisinopril Medications at Discharge Home Medications fluvoxamine 100 mg tablet 200 mg PO QHS 09/03/24 lisinopril 10 mg tablet 10 mg PO DAILY 09/03/24 metformin 1,000 mg tablet 1,000 mg PO BID 09/03/24 sitagliptin phosphate 100 mg tablet (Januvia) 100 mg PO DAILY 09/03/24 albuterol sulfate 90 mcg/actuation aerosol inhaler 1 puff inhalation Q4H PRN wheezing 03/08/25 insulin glargine 100 unit/mL (3 mL) subcutaneous pen (Lantus Solostar U-100 Insulin) 38 unit subcut QPM 03/08/25 doxycycline monohydrate 100 mg tablet 100 mg PO BID #14 tabs 03/09/25 Hospital Course Operations None Procedures None Summary of Care Provided Minutes Spent on Discharge: 31 Hospital Course: This 34-year-old white male was seen in the emergency room at [facility] with complaints of left upper inner thigh redness and drainage of purulent material over the past 3 days. Workup in the emergency room included a CBC which shows white count to be 11.7, chemistry profile was abnormal for sodium of 130 and a glucose of 290. CT of the abdomen showed a nonobstructing stone in the midpole of the right kidney, there is noted to be a blastic focus in the right iliac area with circumscribed lytic lesion in the right iliac measuring 1.9 x 0.7 cm. Bone scan correlation was recommended. There was skin thickening and subcutaneous edema throughout the left inner thigh with no organized drainable collection. Cultures were obtained in the emergency room patient was given IV antibiotics, he was admitted to [place] [address] and seen in consultation by general surgery who did not feel there was a need for any surgery. On 03/09/2025, patient was seen and examined: On examination he appeared in good health and spirits. Vital signs as documented. Skin warm and dry and without overt rashes. Neck without JVD, neck was supple, trachea midline, thyroid was normal. Lungs clear bilaterally, normal air movement was noted. Heart exam notable for regular rhythm, normal sounds and absence of murmurs, rubs or gallops. Abdomen unremarkable and without evidence of organomegaly, masses, or abdominal aortic enlargement. Bowel sounds are present, abdomen is not distended. Extremities nonedematous, no cyanosis was noted, no clubbing was noted. Neuro: Cranial nerves II through XII are grossly intact, no focal motor deficits were noted, sensation to light touch and pinprick intact, motor exam 5/5 throughout. Psych: Patient is alert and oriented x3, he does not appear anxious or depressed, he does not appear agitated. Patient was discharged home in stable condition on 03/09/2025, I notified the patient by phone on 03/15/2025 that he should follow-up with Dr. Savage regarding the abnormal area in his right iliac area that was noted on the CAT scan and he should obtain a bone scan for follow-up. I also talked with his mother about this because I was not initially able to contact the patient. Finally, I left a message on Dr. Weaver's personal phone to call me regarding this and I described the findings in my voicemail and advised him to get a bone scan on the patient as an outpatient. This was done on 03/15/2025. Weight / BMI Weight Weight: 136.985 kg Body Mass Index (BMI) 39.8 ABG / Lab / Microbiology Data 03/09/25 05:18 03/09/25 05:18 Laboratory: Laboratory Results - last 24 hr 03/08/25 13:40: POC Glucose 237 H 03/08/25 16:12: POC Glucose 207 H 03/08/25 21:50: POC Glucose 212 H 03/09/25 05:18: WBC 8.7, RBC 4.80, Hgb 13.1, Hct 39.7 L, MCV 82.7, MCH 27.3, MCHC 33.0, RDW Std Deviation 41.1, RDW Coeff of Trell 13.5, Plt Count 321, MPV 9.2, Immature Gran % (Auto) 0.800, Neut % (Auto) 77.8 H, Lymph % (Auto) 12.9 L, [place] % (Auto) 7.3, Eos % (Auto) 0.5, Baso % (Auto) 0.7, Absolute Neuts (auto) 6.8, Absolute Lymphs (auto) 1.12, Nucleated RBC % 0, Sodium 134, Potassium 4.4, Chloride 100, Carbon Dioxide 20.4 L, Anion Gap 14, BUN 14, Creatinine 0.68 L, Estim Creat Clear Calc 226.62, Est GFR (MDRD) Non-Af 127, BUN/Creatinine Ratio 20.4 H, Glucose 257 H, Hemoglobin A1c 9.4 H, Calcium 8.3 03/09/25 06:07: POC Glucose 233 H 03/09/25 11:04: POC Glucose 239 H Microbiology: Microbiology 03/08/25 08:45 Blood Culture (Wb) - Anticubital Right Blood Culture - Final No growth in 5 days. 03/08/25 08:45 Blood Culture (Wb) - Right Forearm Blood Culture - Final No growth in 5 days. 03/08/25 12:10 Wound Abcess - Groin Gram Stain - Final 03/08/25 12:10 Wound Abcess - Groin Wound Culture - Final Streptococcus agalactiae (B) Streptococcus gallolyticus pas Staphylococcus haemolyticus 03/08/25 08:58 Urine, Clean Catch Urine Culture - Final Mixed Gram Positive Organisms 03/08/25 12:10 Wound - Groin Skin and Soft Tissue MRSA/MSSA (PCR - Final D/C Instructions Weight Bearing Status: Full weight bearing DC O2, CPAP, BIPAP Needs Home O2 Discharge instructions: No Meaningful Use Info Meaningful Use Meaningful Use Diagnoses (Choose all that apply): None applicable Discharge Plan Admission Admit Date/Time: 03/08/25 11:28 Primary Reason for Your Visit: Left upper thigh cellulitis/abscess Attending Provider: Vladimir Olson Primary Care Provider: Danny Kraus Consulting Providers: Kevin Ruiz Instructions Additional Instructions / Restrictions: Pack your left thigh wound twice a day Discharge Orders/Prescriptions Prescriptions: New doxycycline monohydrate 100 mg tablet 100 mg PO BID Qty: 14 0RF Continued fluvoxamine 100 mg tablet 200 mg PO QHS metformin 1,000 mg tablet 1,000 mg PO BID lisinopril 10 mg tablet 10 mg PO DAILY Januvia 100 mg tablet 100 mg PO DAILY insulin glargine [Lantus Solostar U-100 Insulin] 100 unit/mL (3 mL) insulin pen 38 unit subcut QPM albuterol sulfate 90 mcg/actuation HFA aerosol inhaler 1 puff INHALATION Q4H PRN (Reason: wheezing) Referrals / Follow Up: Kevin Ruiz MD [Med Staff - Active Staff, General Surgery] - In 1 Week Referral Note: Call to make a follow-up appointment for next week Danny Kraus MD [Primary Care Provider, Family Practice] - See Referral Note Referral Note: In 2 weeks Disposition Disposition (needs filled in before D/C Order can be placed): Home, Self Care Charges/Coding Visit Charges Inpatient E&M: 42812 Disch Hosp >30min
--- NOTE | 2025-03-09 14:01 | CASEMGMT ---
CLOVIS HORNER Assessment: Face to Face with pt for initial transition planning/care coordination assessment. RN EVENS introduced self and role at [facility], pt voices understanding and consents to assessment. Pt is A&O x4 and answers all questions appropriately at this time. Pt lying in bed in no distress. Care providers, pharmacy, and demographics verified/updated. Strata: 2 Admitting Dx: L Thigh abcess PCP: Nayana Specialists: Eli, Typo Machine Operator Preferred Pharmacy: [facility] Insurance: [employer] Prescription Benefit: yes LNOK: Ayana Fitzgerald Living Arrangements: Pt lives with mom in a 1 level home with 1 step to enter. ADLs: Pt states I at baseline with ADLs and IADLs. Transportation: Pt drives self and denies concerns with transportation. DME: [employer] and supplies HHC/SNF: Denies Hx of. Pt states no concerns with going home at time of dc. Pt states he is able to do wound care at home. Pt states no further concerns/needs. CM to follow. Advised pt to ask CM if any further question/concerns/needs arise, voices understanding. Pt Goal: Home Plan: Home with family support and wound care. Clement BRANNON CM
[2025-03-09 14:51] VITALS: BP 125/81; PULSE 99; RESP 18; TEMP 36.8; O2SAT 97
== END 2025-03-09 14:50 | disposition home or self-care (01) | DRG 420 ==
LOC: ED 11:48 → MS3 12:04
PROVIDERS: Anesthesiology; Admitting Provider Internal Medicine; Emergency Provider Student in an Organized Health Care Education/Training Program; PCP Family Medicine; Visit Provider Internal Medicine
DX: E11.628 Type 2 diabetes mellitus with other skin complications (principal); L02.416 Cutaneous abscess of left lower limb; I10 Essential (primary) hypertension; Z79.4 Long term (current) use of insulin; Z79.84 Long term (current) use of oral hypoglycemic drugs; Z79.899 Other long term (current) drug therapy; Z23 Encounter for immunization
CPT/HCPCS: 36415; 74177; 80048; 80053; 81001; 82010; 82803; 82962; 83036; 83605; 85025; 85610; 85730; 87040; 87070; 87077; 87086; 87088; 87186; 87205; 87640; 93005; 97802; 99284; Q9967; A4216; J2405

== ENCOUNTER 2025-03-12 17:39 | Emergency (ER) | payer MEDICAID, SELFPAY ==
[2025-03-12 17:39] VITALS: BP 134/86; PULSE 129; RESP 18; TEMP 37.3; O2SAT 98; BMI 40.6
[2025-03-12] MEDS: 0.9% Normal Saline (1000mL) 1,000 ML 1000 ML IV ×2 (19:28→21:01)
[2025-03-12 19:35] LABS: Hematocrit 43.5 % (40-54); Hemoglobin 14.6 g/dL (13.0-16.5); Immature Granulocytes Count 0.120 X10^3/uL (0.0-0.0); Mean Corp Hgb Conc 33.6 g/dL (32-36); Mean Corpuscular Volume 81.3 fL (80-94); Mean Platelet Vol. 9.1 fl (6.2-12.0); NRBC Flagged by Analyzer 0 % (0-5); Platelet Count 441 K/mm3 (150-450); RBC Distribution Width CV 13.5 % (11.6-14.6); RBC Distribution Width SD 39.6 fl (35.1-43.9); Red Blood Count 5.35 M/mm3 (4.6-6.2); White Blood Count 9.3 K/mm3 (4.4-11.0)
[2025-03-12 19:39] VITALS: BP 138/78; PULSE 102; RESP 18; O2SAT 98
[2025-03-12 20:23] LABS: Anion Gap 18 (5-15); BUN 16 mg/dL (4-19); BUN/Creat Ratio 25.9 RATIO (10-20); Calcium,Total 9.1 mg/dL (7.6-11.0); Carbon Dioxide 18.1 mmol/L (21.0-32.0); Chloride 96 mmol/L (98-108); Estimated Creatinine Clearance 259.76 ml/min (50-250); Glucose 307 mg/dL (70-99); Potassium 3.9 mmol/L (3.3-5.1)
[2025-03-12 21:00] VITALS: BP 154/92; PULSE 105; RESP 18; TEMP 36.7; O2SAT 97
[2025-03-12 22:16] LABS: BETA-HYDROXYBUTYRATE 2.3 mmol/L (0.0-0.3)
[2025-03-12 23:00] VITALS: BP 160/98; PULSE 99; RESP 19; O2SAT 99
[2025-03-12 23:27] LABS: Anion Gap 14 (5-15); BUN 13 mg/dL (4-19); BUN/Creat Ratio 24.7 RATIO (10-20); Calcium,Total 8.6 mg/dL (7.6-11.0); Carbon Dioxide 20.0 mmol/L (21.0-32.0); Chloride 101 mmol/L (98-108); Estimated Creatinine Clearance 294.06 ml/min (50-250); Glucose 239 mg/dL (70-99); Potassium 3.7 mmol/L (3.3-5.1)
[2025-03-13 00:22] VITALS: BP 134/73; PULSE 99; RESP 18; TEMP 37.1; O2SAT 97
== END 2025-03-13 00:40 | disposition home or self-care (01) ==
PROVIDERS: Emergency Provider Emergency Medicine; PCP Family Medicine; Visit Provider Emergency Medicine
DX: L02.416 Cutaneous abscess of left lower limb (principal); E11.10 Type 2 diabetes mellitus with ketoacidosis without coma; Z79.4 Long term (current) use of insulin; R00.0 Tachycardia, unspecified; I10 Essential (primary) hypertension; Z79.84 Long term (current) use of oral hypoglycemic drugs; Z79.899 Other long term (current) drug therapy
CPT/HCPCS: 80048; 82010; 85025; 96360; 96361; 99282; A4216